=== PATIENT | female | born 1940 | race Caucasian/White ===

== ENCOUNTER → 2024-06-30 | Outpatient (CLI) | payer MEDICARE, SELFPAY ==
[2024-06-30 17:14] LABS: Absolute Lymphocyte Count 1.16 X10^3/uL (0.83-4.51); Absolute Neutrophil Count 3.9 X10^3/uL (2.0-7.7); Basophil# 0.05 X10^3/uL; Basophil% 0.9 % (0-1); Eosinophil# 0.08 X10^3/uL; Eosinophils% 1.4 % (0-5); Hematocrit 25.4 % (37-47); Hemoglobin 7.6 g/dL (12.0-15.0); Lymphocyte # 1.16 X10^3/ul (0.83-4.51); Lymphocyte % 20.3 % (19-41); Mean Corp Hgb Conc 29.9 g/dL (32-36); Mean Corpuscular Hgb 23.7 pg (27.0-32.0); Mean Corpuscular Volume 79.1 fL (81-99); Mean Platelet Vol. 10.6 fl (6.2-12.0); Monocyte# 0.52 X10^3/uL; Monocyte% 9.1 % (0-10); NRBC Flagged by Analyzer 0 % (0-5); Neutrophil # 3.89 X10^3/uL (2.7-7.7); Platelet Count 354 K/mm3 (150-450); RBC Distribution Width CV 17.1 % (11.6-14.6); RBC Distribution Width SD 49.4 fl (35.1-43.9); Red Blood Count 3.21 M/mm3 (4.2-5.4); White Blood Count 5.7 K/mm3 (4.4-11.0)
[2024-06-30 17:23] LABS: Vitamin D,25 Hydroxy 30.2 ng/mL
[2024-06-30 17:29] LABS: AST(SGOT) 20 U/L (15-37); Alanine Aminotransfer ALT/SGPT 19 U/L (13-56); Albumin, Serum 3.3 g/dL (3.2-5.0); Alkaline Phosphatase 94 U/L (45-117); Anion Gap 5 (5-15); BUN 25 mg/dL (7-18); BUN/Creat Ratio 31.3 RATIO (10-20); Calcium,Total 8.7 mg/dL (8.5-10.1); Chloride 110 mmol/L (98-107); EST Glomerular Filtration Rate 73 mL/min (>60); Est Glom Filt Rate - Afr Amer 88 mL/min (>60); Globulin 3.2 g/dL (2.2-4.2); Glucose 112 mg/dL (74-106); Potassium 4.1 mmol/L (3.5-5.1); Protein, Total 6.5 g/dL (6.4-8.2); Sodium Level 139 mmol/L (136-145)
[2024-07-01 14:13] LABS: Iron 11 ug/dL (50-170); Iron Binding Capacity,Total 458 ug/dL (250-450); PERCENT IRON SATURATION 2.4 % (15.0-55.0)
[2024-07-01 14:21] LABS: Hemoglobin A1c 5.3 % (3.8-5.6)
== END | disposition home or self-care (01) ==
PROVIDERS: Visit Provider Nurse Practitioner Family
DX: D64.9 Anemia, unspecified (principal); F03.90 Unspecified dementia, unspecified severity, without behavioral disturbance, psychotic disturbance, mood disturbance, and anxiety; R73.9 Hyperglycemia, unspecified; E55.9 Vitamin D deficiency, unspecified
CPT/HCPCS: 36415; 80053; 82306; 83036; 83540; 83550; 84443; 85025

== ENCOUNTER → 2024-07-02 | Outpatient (CLI) | payer MEDICARE, SELFPAY | END | disposition home or self-care (01) | PROVIDERS: Visit Provider Nurse Practitioner Family | DX: D64.9 Anemia, unspecified (principal); R73.9 Hyperglycemia, unspecified | CPT/HCPCS: 82274 ==

== ENCOUNTER 2024-07-03 15:15 | Inpatient (IN) | payer MEDICARE, SELFPAY ==
[2024-07-03] VITALS (10 sets, daily range): BP systolic 111–127; BP diastolic 69–87; PULSE 69–97; RESP 16–18; TEMP 36.1–37; O2SAT 96–99; BMI 25.3; BMI 25.0
--- NOTE | 2024-07-03 15:43 | EX.ED.DYSGE1 ---
HPI History of Present Illness Chief Complaint: GI Bleed Narrative Narrative: Patient is a 83-year-old female with past medical history of dementia and reported polyps removed several years ago per family out in [place] has not had recent scopes since then who presents to the emergency department with a chief complaint of low hemoglobin. According to the patient daughter at bedside she notes that her mother had been feeling more tired than normal prompting them to follow-up with her primary care physician outpatient setting. They state that she had blood work obtained and a stool sample that was positive they note that her hemoglobin was 7.6. They state that she is on no medications and has not been taking any NSAIDs recently. Family ember at bedside notes that her mother is at baseline and there is no changes neurologically. [facility] Medical History Dementia Allergy/AdvReac Type Severity Reaction Status Date / Time No Known Allergies Allergy Verified 07/03/24 15:20 Social History Smoking Status: Former smoker ROS ROS ED ROS Narrative Constitutional: Denies any fevers, chills, lightheadedness, dizziness, headaches even though this is in the triage note she denies this for me Eyes: Denies any change in vision double vision blurry vision Cardiovascular: Denies chest pain or palpitations Respiratory: Denies coughing wheezing shortness of breath Abdomen: Denies abdominal pain nausea vomit diarrhea. States that she has had dark stools starting recently : Denies any urinary symptoms Neurological: Denies numbness, weakness, tingling Musculoskeletal: Denies back pain Skin: Denies rashes or lesions EXAM Physical Exam Narrative Exam Narrative: General: Patient was lying in bed rest comfortably did not appear to be acute distress Head: Atraumatic, normocephalic Eyes: PERRL bilaterally, EOMI bilaterally, no conjunctival injection noted Neck: Soft, supple, trachea midline Cardiovascular: Regular rate and rhythm no murmurs gallops rubs noted Respiratory: Clear to auscultation bilaterally no rales rhonchi wheeze noted Abdomen: Soft, nondistended, nontender to palpation, bowel sounds present x 4 Extremities: +5/5 strength noted in the bilateral upper and lower extremities, no pedal edema on exam, radial pulses +2/4 in the bilateral per extremities Neurological: Patient following commands and is at her baseline according to her daughter at bedside Skin: Warm, dry, intact no rashes or lesions noted Const Vital Signs: 07/03/24 15:17 07/03/24 17:17 07/03/24 17:53 Temperature 98.2 F 98.4 F Temperature Source Oral Oral Pulse Rate 97 79 79 Respiratory Rate 16 18 18 Blood Pressure 112/74 117/69 111/76 Blood Pressure Mean 86 85 87 Blood Pressure Source Monitor Blood Pressure Position Semi-Fowlers Blood Pressure Location Left Arm Pulse Ox 98 96 96 Oxygen Delivery Method Room Air Room Air Room Air 07/03/24 18:08 Temperature 97.7 F L Temperature Source Oral Pulse Rate 80 Respiratory Rate 18 Blood Pressure 118/73 Blood Pressure Mean 88 Blood Pressure Source Monitor Blood Pressure Position Semi-Fowlers Blood Pressure Location Left Arm Pulse Ox 98 Oxygen Delivery Method Room Air MDM MDM MDM Narrative Medical decision making narrative: Patient is a 83-year-old female who presented to the emerged part with chief complaint of low hemoglobin and dark tarry stools with a positive stool sample. Patient will have a workup performed here on the differential diagnose includes but not limited to upper GI bleed, chronic anemia. Once workup is obtained and reviewed she will be reevaluated. Patient's CBC was largely unremarkable patient CBC reviewed and showed no evidence of leukocytosis white blood count normal 5.6, hemoglobin was notably low at 7 compared to previous blood draw on was 7.6 and this was low compared to her previous blood test according to outpatient physician, MCV was noted be 78.2, platelet count normal at 336. Patient sodium normal 137, potassium normal 4.1, kidney function was normal with a creatinine of 0.98. Patient's AST and ALT were 2124 respectively, lipase was normal at 38. Patient's urinalysis did not reveal any evidence of infection. Patient was Hemoccult positive yesterday. Did call and discussed case with Dr. Cardoza who states that he is able to scope if she would to deteriorate as there is no on-call gastroenterology currently. Outside facilities are not accepting transfers as they are completely full as well. After further discussion with the patient's family members they do feel that would be best for her to be admitted to the hospital for observation. Patient case discussed with hospitalist Dr. Dominique who accept patient for observation. Patient was typed and screened given 1 unit of blood for her symptomatic anemia. Patient was given 40 mg of IV Protonix as well. Patient and family members were updated with all question concerns answered bedside they are agreeable with this plan. Lab Data Labs: Laboratory Results - last 24 hr 07/03/24 07/03/24 07/03/24 16:05 16:15 16:38 WBC 5.6 RBC 3.08 L Hgb 7.0 L Hct 24.1 L MCV 78.2 L MCH 22.7 L MCHC 29.0 L RDW Std Deviation 49.0 H RDW Coeff of David 17.2 H Plt Count 336 MPV 10.0 Immature Gran % (Auto) 0.500 Neut % (Auto) 62.9 Lymph % (Auto) 24.4 Brown % (Auto) 9.3 Eos % (Auto) 1.8 Baso % (Auto) 1.1 H Absolute Neuts (auto) 3.5 Absolute Lymphs (auto) 1.36 Nucleated RBC % 0 Sodium 137 Potassium 4.1 Chloride 106 Carbon Dioxide 25.0 Anion Gap 6 BUN 21 H Creatinine 0.98 Estim Creat Clear Calc 40.22 Est GFR (MDRD) Af Amer 70 Est GFR (MDRD) Non-Af 57 L BUN/Creatinine Ratio 21.5 H Glucose 109 H Calcium 8.5 Total Bilirubin 0.30 AST 21 ALT 24 Alkaline Phosphatase 95 Troponin I High Sens 5 Total Protein 6.4 Albumin 3.1 L Globulin 3.3 Albumin/Globulin Ratio 0.9 Lipase 38 Urine Color Yellow Urine Clarity Clear Urine pH 6.0 Ur Specific [place] 1.010 Urine Protein Negative Urine Glucose (UA) Normal Urine Ketones Negative Urine Occult Blood Negative Urine Nitrite Negative Urine Bilirubin Negative Urine Urobilinogen Normal Ur Leukocyte Esterase 25 H Urine RBC 0 SEEN Urine WBC 0-5 SEEN Ur Squamous Epith Cells 0 SEEN Urine Bacteria 0 SEEN Urine Mucus 0 SEEN Blood Type O NEGATIVE Antibody Screen NEGATIVE Crossmatch See Detail Discharge Plan Triage Chief Complaint: GI Bleed ED Provider: Dangelo Suazo Dx/Rx/DC Orders Clinical Impression: Upper GI bleed, Anemia Primary Care Provider: Rachna Swenson Referrals: Rachna Swenson, [employer]ICE-[employer] [Primary Care Provider] - Print Language: Chinese
[2024-07-03 16:17] LABS: Absolute Lymphocyte Count 1.36 X10^3/uL (0.83-4.51); Absolute Neutrophil Count 3.5 X10^3/uL (2.0-7.7); Basophil# 0.06 X10^3/uL; Basophil% 1.1 % (0-1); Eosinophils% 1.8 % (0-5); Hematocrit 24.1 % (37-47); Lymphocyte # 1.36 X10^3/ul (0.83-4.51); Lymphocyte % 24.4 % (19-41); Mean Corpuscular Hgb 22.7 pg (27.0-32.0); Mean Corpuscular Volume 78.2 fL (81-99); Monocyte# 0.52 X10^3/uL; Monocyte% 9.3 % (0-10); NRBC Flagged by Analyzer 0 % (0-5); Neutrophil % 62.9 % (47-70); Platelet Count 336 K/mm3 (150-450); RBC Distribution Width CV 17.2 % (11.6-14.6); Red Blood Count 3.08 M/mm3 (4.2-5.4); White Blood Count 5.6 K/mm3 (4.4-11.0)
[2024-07-03 16:20] LABS: Bacteria 0 SEEN /hpf (None Seen); Mucous, Urine 0 SEEN /hpf (<or=2+); Red Blood Cells-Urine 0 SEEN /hpf (0-5); Squamous Epithelial Cells - UA 0 SEEN /hpf (5-10)
[2024-07-03 16:28] LABS: Color, Urine Yellow (Yellow); Glucose, Dipstick Normal (Normal); Ketone-Dipstick Negative (Negative); Leukocyte Esterase-Dipstick 25 /ul (Negative); Nitrite-Dipstick Negative (Negative); Occult Blood-Urine Negative /ul (Negative); Protein-Dipstick Negative (Negative); Urine Bilirubin Dipstick Negative (Negative); Urine Clarity Clear (Clear); Urine Urobilinogen Normal (Normal)
[2024-07-03 16:33] LABS: ALB/GLOB Ratio 0.9 RATIO (0.9-2.4); AST(SGOT) 21 U/L (15-37); Alanine Aminotransfer ALT/SGPT 24 U/L (13-56); Albumin, Serum 3.1 g/dL (3.2-5.0); Alkaline Phosphatase 95 U/L (45-117); Anion Gap 6 (5-15); BUN 21 mg/dL (7-18); BUN/Creat Ratio 21.5 RATIO (10-20); Calcium,Total 8.5 mg/dL (8.5-10.1); Chloride 106 mmol/L (98-107); Creatinine, Serum 0.98 mg/dL (0.55-1.02); EST Glomerular Filtration Rate 57 mL/min (>60); Est Glom Filt Rate - Afr Amer 70 mL/min (>60); Estimated Creatinine Clearance 40.22 ml/min; Globulin 3.3 g/dL (2.2-4.2); Glucose 109 mg/dL (74-106); Lipase 38 U/L (13-75); Potassium 4.1 mmol/L (3.5-5.1); Protein, Total 6.4 g/dL (6.4-8.2); Sodium Level 137 mmol/L (136-145); Troponin-I HS 5 pg/mL (3.0-54.0)
[2024-07-03 16:38] LABS: White Blood Cells 0-5 SEEN /hpf (0-5)
[2024-07-03] MEDS: Pantoprazole Sodium 40 MG in 0.9% Normal Saline (100mL MB+) 100 ML 330 MG IV ×2 (16:56→21:30)
--- NOTE | 2024-07-03 18:21 | ED.RN ---
Paged Rhea per Dr Ledezma request for Dr Suazo
--- NOTE | 2024-07-03 19:42 | PCM.HP.STD ---
HPI - General General Date of Admission: 07/03/24 Date of Service: 07/03/24 Chief Complaint: Stool for occult blood positive. Severe anemia. HPI Narrative JAMIE ROLLE, is a 83 F with history of dementia improved on memory unit for last 3 years was sent to ED by PCP. Prior to that patient has noticed very tired and saw PCP who found severe anemia her hemoglobin 7.6. Stool for occult blood was done which came out positive. Patient was sent to ED for further evaluation. Patient is not taking NSAID, antiplatelet agent or anticoagulant agent. No fever or chills. As per the daughter, she did not notice any dyspnea on exertion when she walks 4-5 labs daily. No dizziness or vertigo. Past medical history: About 30 years ago she had a small fall volvulus and a small segment of small bowel was resected. 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 This history was given by patient's daughter. [facility] Medical History Dementia Home Medications ?Medication ?Instructions ?Recorded ?Last Taken ?Type NK 07/03/24 Unknown History Allergy/AdvReac Type Severity Reaction Status Date / Time No Known Allergies Allergy Verified 07/03/24 15:20 Social History Smoking Status: Former smoker ROS ROS Narrative ROS mainly obtained by patient's daughter. Patient herself complain of increased frequency and urgency though she does not have burning micturition/dysuria. Denies dyspnea on exertion. No abdominal pain, nausea vomiting, hematemesis, hematochezia or melena No chest pain pressure or tightness. Rest 14 system ROS unobtainable as patient has severe dementia. She lives in [facility] Review of Systems ROS Unobtainable: due to mental condition Vital Signs Vital Signs Vital Signs: 07/03/24 15:17 07/03/24 17:17 07/03/24 17:53 Temperature 98.2 F 98.4 F Temperature Source Oral Oral Pulse Rate 97 79 79 Respiratory Rate 16 18 18 Blood Pressure 112/74 117/69 111/76 Blood Pressure Mean 86 85 87 Blood Pressure Source Monitor Blood Pressure Position Semi-Fowlers Blood Pressure Location Left Arm Pulse Ox 98 96 96 Oxygen Delivery Method Room Air Room Air Room Air 07/03/24 18:08 07/03/24 18:49 07/03/24 19:00 Temperature 97.7 F L 98 F Temperature Source Oral Pulse Rate 80 82 69 Respiratory Rate 18 18 18 Blood Pressure 118/73 122/77 H 122/79 H Blood Pressure Mean 88 92 93 Blood Pressure Source Monitor Blood Pressure Position Semi-Fowlers Blood Pressure Location Left Arm Pulse Ox 98 98 97 Oxygen Delivery Method Room Air Room Air 07/03/24 19:08 Temperature 97.1 F L Temperature Source Temporal Pulse Rate 93 Respiratory Rate 18 Blood Pressure 122/79 H Blood Pressure Mean 93 Blood Pressure Source Monitor Blood Pressure Position Semi-Fowlers Blood Pressure Location Left Arm Pulse Ox 96 Oxygen Delivery Method Room Air Weight Weight: 147 lb 11.2 oz Body Mass Index (BMI) 25.3 Physical Exam Narrative General: Alert, awake, oriented x3, Cooperative HEENT: Bilateral profound hearing loss, uses hearing avoid. Atraumatic, PERRLA, EOMI, Normocephalic Oral: Oral mucosa dry. No Gingival or Mucosal Lesions/ Ulcerations Neck: Supple, No JVD, Negative Carotid Bruits Chest wall/Lungs: Air entry diminished in bilateral lung bases. No crepitation/rhonchi Cardiovascular: Regular rate, Regular Rhythm, Normal S1, Normal S2, systolic murmur right second ICS Abdomen: Bowel Sounds Present, Soft, Non Tender, Non-Distended : No dysuria. No renal angle tenderness. No suprapubic tenderness. Extremities: No edema, Capillary Refill Less than 3 Seconds Skin: No rashes, No breakdown Musculoskeletal: No Tenderness to Palpation of Joints or Extremities. 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 Neurological: Cranial nerves II-XII grossly intact, DTR 2+/4. No acute focal neurological deficit. Psych/Mental Status: Flat affect, dementia. Results Lab / Micro Data 07/03/24 16:05 07/03/24 16:05 Labs: Laboratory Results - last 24 hr 07/03/24 16:05: WBC 5.6, RBC 3.08 L, Hgb 7.0 L, Hct 24.1 L, MCV 78.2 L, MCH 22.7 L, MCHC 29.0 L, RDW Std Deviation 49.0 H, RDW Coeff of David 17.2 H, Plt Count 336, MPV 10.0, Immature Gran % (Auto) 0.500, Neut % (Auto) 62.9, Lymph % (Auto) 24.4, [place] % (Auto) 9.3, Eos % (Auto) 1.8, Baso % (Auto) 1.1 H, Absolute Neuts (auto) 3.5, Absolute Lymphs (auto) 1.36, Nucleated RBC % 0, Sodium 137, Potassium 4.1, Chloride 106, Carbon Dioxide 25.0, Anion Gap 6, BUN 21 H, Creatinine 0.98, Estim Creat Clear Calc 40.22, Est GFR (MDRD) Af Amer 70, Est GFR (MDRD) Non-Af 57 L, BUN/Creatinine Ratio 21.5 H, Glucose 109 H, Calcium 8.5, Total Bilirubin 0.30, AST 21, ALT 24, Alkaline Phosphatase 95, Troponin I High Sens 5, Total Protein 6.4, Albumin 3.1 L, Globulin 3.3, Albumin/Globulin Ratio 0.9, Lipase 38 07/03/24 16:15: Urine Color Yellow, Urine Clarity Clear, Urine pH 6.0, Ur Specific [place] 1.010, Urine Protein Negative, Urine Glucose (UA) Normal, Urine Ketones Negative, Urine Occult Blood Negative, Urine Nitrite Negative, Urine Bilirubin Negative, Urine Urobilinogen Normal, Ur Leukocyte Esterase 25 H, Urine RBC 0 SEEN, Urine WBC 0-5 SEEN, Ur Squamous Epith Cells 0 SEEN, Urine Bacteria 0 SEEN, Urine Mucus 0 SEEN 07/03/24 16:38: Blood Type O NEGATIVE, Antibody Screen NEGATIVE, Crossmatch See Detail Assessment & Plan Assessment/Plan (1) Upper GI bleed: (2) Acute blood loss anemia: PLAN: Plan This is a 83-year-old female being admitted for evaluation of severe anemia and stool for occult blood positive. 1. Acute anemia most likely from GI blood loss: Patient is being admitted to PCU. H&H done as an outpatient was 7.6/25%. It further dropped to 7.0/24%. Patient is getting first unit of PRBC in ED. IV pantoprazole 40 mg every 12 hourly. Patient does not have a history of cirrhosis or chronic liver disease therefore low suspicion of variceal bleeding. GI DrPaulino Méndez is consulted for EGD tomorrow AM. Clear liquids in the evening and then n.p.o. from midnight. Twelve-lead EKG individually reviewed. NSR, low voltage QRS at 84/min. QTc 423 ms. Heart rate and blood pressure are in normal range. 2. 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 No acute issues. 3. Acute lower urinary tract symptoms: Patient complaining of increased frequency and urgency though she denies dysuria. UA shows LE 25, nitrite negative, WBC 0-5 cells, RBC 0, bacteria 0 therefore low suspicion of UTI. Urine culture is ordered. Patient does not have fever. 4. Advanced dementia: Patient in memory unit [facility] DVT prophylaxis, high risk: Pharmacological prophylaxis contraindicated in view of severe anemia. Bilateral SCDs Living will/advanced directive/end of life care: Patient does have living will or advanced directive. Her daughter is power of sports attorney for health after discussion of benefits/risks procedures involved with full code, DNR CC arrest and DNR CC, the patient and her daughter opted for full code. Patient does want artificial life support including intubation, tube feed, ventilator and/chest compression, central venous catheter, vasopressor and DC shock if needed Total time spent in [id number] encounter in discussion of advanced directive 17 minutes. Laboratory Results 07/03/24 16:05: WBC 5.6, RBC 3.08 L, Hgb 7.0 L, Hct 24.1 L, MCV 78.2 L, MCH 22.7 L, MCHC 29.0 L, RDW Std Deviation 49.0 H, RDW Coeff of David 17.2 H, Plt Count 336, MPV 10.0, Immature Gran % (Auto) 0.500, Neut % (Auto) 62.9, Lymph % (Auto) 24.4, [place] % (Auto) 9.3, Eos % (Auto) 1.8, Baso % (Auto) 1.1 H, Absolute Neuts (auto) 3.5, Absolute Lymphs (auto) 1.36, Nucleated RBC % 0, Sodium 137, Potassium 4.1, Chloride 106, Carbon Dioxide 25.0, Anion Gap 6, BUN 21 H, Creatinine 0.98, Estim Creat Clear Calc 40.22, Est GFR (MDRD) Af Amer 70, Est GFR (MDRD) Non-Af 57 L, BUN/Creatinine Ratio 21.5 H, Glucose 109 H, Calcium 8.5, Total Bilirubin 0.30, AST 21, ALT 24, Alkaline Phosphatase 95, Troponin I High Sens 5, Total Protein 6.4, Albumin 3.1 L, Globulin 3.3, Albumin/Globulin Ratio 0.9, Lipase 38 07/03/24 16:15: Urine Color Yellow, Urine Clarity Clear, Urine pH 6.0, Ur Specific [place] 1.010, Urine Protein Negative, Urine Glucose (UA) Normal, Urine Ketones Negative, Urine Occult Blood Negative, Urine Nitrite Negative, Urine Bilirubin Negative, Urine Urobilinogen Normal, Ur Leukocyte Esterase 25 H, Urine RBC 0 SEEN, Urine WBC 0-5 SEEN, Ur Squamous Epith Cells 0 SEEN, Urine Bacteria 0 SEEN, Urine Mucus 0 SEEN 07/03/24 16:38: Blood Type O NEGATIVE, Antibody Screen NEGATIVE, Crossmatch See Detail Charges/Coding Visit Charges Inpatient E&M: 73510 Init Hosp L3 Procedures Hospitalists Procedures: 81549 Advncd Care Plan 30 Min
[2024-07-03] MEDS: 0.9% Saline Lock 10 ML Syringe IV (21:28)
[2024-07-03] MEDS: 0.9% Normal Saline (1000mL) 1,000 ML 75 ML IV (21:28)
[2024-07-03 21:45] LABS: Prothrombin Time (Protime)PT. 13.4 SECONDS (11.7-14.9)
[2024-07-04] VITALS (11 sets, daily range): BP systolic 99–124; BP diastolic 64–82; PULSE 63–81; RESP 16–18; TEMP 36.4–36.9; O2SAT 95–99
[2024-07-04 01:31] LABS: Hematocrit 26.1 % (37-47); Hemoglobin 7.8 g/dL (12.0-15.0)
[2024-07-04 07:01] LABS: Absolute Lymphocyte Count 1.05 X10^3/uL (0.83-4.51); Basophil# 0.06 X10^3/uL; Basophil% 1.2 % (0-1); Eosinophil# 0.15 X10^3/uL; Eosinophils% 3.1 % (0-5); Hematocrit 27.2 % (37-47); Hemoglobin 8.2 g/dL (12.0-15.0); Lymphocyte # 1.05 X10^3/ul (0.83-4.51); Lymphocyte % 21.8 % (19-41); Mean Corp Hgb Conc 30.1 g/dL (32-36); Mean Corpuscular Hgb 23.8 pg (27.0-32.0); Mean Corpuscular Volume 79.1 fL (81-99); Mean Platelet Vol. 10.6 fl (6.2-12.0); Monocyte# 0.51 X10^3/uL; Monocyte% 10.6 % (0-10); NRBC Flagged by Analyzer 0 % (0-5); Neutrophil # 3.01 X10^3/uL (2.7-7.7); Neutrophil % 62.7 % (47-70); Platelet Count 312 K/mm3 (150-450); RBC Distribution Width CV 16.8 % (11.6-14.6); RBC Distribution Width SD 48.2 fl (35.1-43.9); Red Blood Count 3.44 M/mm3 (4.2-5.4); White Blood Count 4.8 K/mm3 (4.4-11.0)
--- NOTE | 2024-07-04 07:35 | PN.HOSP_ITS ---
Reason for Visit Reason for Visit: Diagnoses Acute posthemorrhagic anemia (07/03/24) Gastrointestinal hemorrhage, unspecified (07/03/24) Subjective Subjective Patient is an 83-year-old lady admitted with symptomatic anemia with guaiac positive stools Objective Data Objective Data Vital Signs: Vital Signs Temp Pulse Resp BP Pulse Ox O2 Del Method 98.1 F 77 16 99/64 97 Room Air 07/04/24 04:04 07/04/24 04:04 07/04/24 04:04 07/04/24 04:04 07/04/24 04:04 07/04/24 04:04 Oxygen Delivery Method Room Air Weight: 66 kg Body Mass Index (BMI) 25.0 Intake & Output: Intake and Output for Last 24 Hours 07/02/24 07/03/24 07/04/24 23:59 23:59 23:59 Intake Total 220 / 460 240 / 240 Output Total 300 / 300 Balance 220 / 160 -60 / -60 Lab / Micro Data 07/04/24 05:30 07/04/24 05:30 Labs: Laboratory Results - last 24 hr 07/03/24 16:05: WBC 5.6, RBC 3.08 L, Hgb 7.0 L, Hct 24.1 L, MCV 78.2 L, MCH 22.7 L, MCHC 29.0 L, RDW Std Deviation 49.0 H, RDW Coeff of David 17.2 H, Plt Count 336, MPV 10.0, Immature Gran % (Auto) 0.500, Neut % (Auto) 62.9, Lymph % (Auto) 24.4, [place] % (Auto) 9.3, Eos % (Auto) 1.8, Baso % (Auto) 1.1 H, Absolute Neuts (auto) 3.5, Absolute Lymphs (auto) 1.36, Nucleated RBC % 0, Sodium 137, Potassium 4.1, Chloride 106, Carbon Dioxide 25.0, Anion Gap 6, BUN 21 H, Creatinine 0.98, Estim Creat Clear Calc 40.22, Est GFR (MDRD) Af Amer 70, Est GFR (MDRD) Non-Af 57 L, BUN/Creatinine Ratio 21.5 H, Glucose 109 H, Calcium 8.5, Total Bilirubin 0.30, AST 21, ALT 24, Alkaline Phosphatase 95, Troponin I High Sens 5, Total Protein 6.4, Albumin 3.1 L, Globulin 3.3, Albumin/Globulin Ratio 0.9, Lipase 38 07/03/24 16:15: Urine Color Yellow, Urine Clarity Clear, Urine pH 6.0, Ur Specific [place] 1.010, Urine Protein Negative, Urine Glucose (UA) Normal, Urine Ketones Negative, Urine Occult Blood Negative, Urine Nitrite Negative, Urine Bilirubin Negative, Urine Urobilinogen Normal, Ur Leukocyte Esterase 25 H, Urine RBC 0 SEEN, Urine WBC 0-5 SEEN, Ur Squamous Epith Cells 0 SEEN, Urine Bacteria 0 SEEN, Urine Mucus 0 SEEN 07/03/24 16:38: Blood Type O NEGATIVE, Antibody Screen NEGATIVE, Crossmatch See Detail 07/03/24 20:59: PT 13.4, INR 1.0 07/04/24 01:22: Hgb 7.8 L, Hct 26.1 L 07/04/24 05:30: WBC 4.8, RBC 3.44 L, Hgb 8.2 L, Hct 27.2 L, MCV 79.1 L, MCH 23.8 L, MCHC 30.1 L, RDW Std Deviation 48.2 H, RDW Coeff of David 16.8 H, Plt Count 312, MPV 10.6, Immature Gran % (Auto) 0.600, Neut % (Auto) 62.7, Lymph % (Auto) 21.8, [place] % (Auto) 10.6 H, Eos % (Auto) 3.1, Baso % (Auto) 1.2 H, Absolute Neuts (auto) 3.0, Absolute Lymphs (auto) 1.05, Nucleated RBC % 0 Physical Exam Narrative GENERAL: cooperative HEENT: Atraumatic; normocephalic EYES; Anicteric, Normal Conjunctiva NECK; supple, normal thyroid, RESPIRATORY: Diminished to auscultation CARDIOVASCULAR: Regular S1 S2, GI: soft, normoactive bowel sounds, : No Renal angle tenderness; EXTREMITIES: No edema, no clubbing, MUSCULOSKELETAL: no muscle wasting NEURO: Awake; no lateralizing signs. SKIN: No Rash PSYCH; Flat affect Assessment & Plan Assessment/Plan (1) Upper GI bleed: (2) Acute blood loss anemia: PLAN: Plan Patient is an 83-year-old lady admitted with symptomatic anemia with guaiac positive stools 1. Acute symptomatic anemia ? Patient did have guaiac positive stools. Patient was transfused with 1 unit PRBC for the emergency department started on Protonix admitted to regular nursing floor with consultation placed to GI for endoscopic evaluation. Subsequent monitoring with daily H&H ordered 2. 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 Previous history of small bowel volvulus 4. Advanced dementia ? Supportive 5. DVT prophylaxis ? Chemoprophylaxis contraindicated in view of patient presentation Time spent in the patient's overall evaluation,decision-making process, review of diagnostic data, adjustment of management, discussion with other providers, nursing nursing and ancillary staff involved in patient's care documentation, 40 Minutes Charges/Coding Visit Charges Inpatient E&M: 05260 Subs Hosp L2
[2024-07-04 08:14] LABS: Anion Gap 6 (5-15); BUN 15 mg/dL (7-18); BUN/Creat Ratio 20.2 RATIO (10-20); Calcium,Total 8.5 mg/dL (8.5-10.1); Chloride 114 mmol/L (98-107); Creatinine, Serum 0.74 mg/dL (0.55-1.02); EST Glomerular Filtration Rate 79 mL/min (>60); Est Glom Filt Rate - Afr Amer 96 mL/min (>60); Estimated Creatinine Clearance 48.94 ml/min; Glucose 92 mg/dL (74-106); Potassium 3.9 mmol/L (3.5-5.1); Sodium Level 144 mmol/L (136-145)
[2024-07-04] MEDS: Pantoprazole Sodium 40 MG in 0.9% Normal Saline (100mL MB+) 100 ML 330 MG IV ×2 (10:06→21:08)
--- NOTE | 2024-07-04 13:03 | CASEMGMT ---
Social Work Pt confirms her daughter Jenna is POA for healthcare. SW asked her to have daughter bring in the paperwork as able. Pt states her daughter will be here later, will have daughter ask to speak w/SW. SW will speak w/daughter later today should she request to speak w/SW. MARILYN De Oliveira
--- NOTE | 2024-07-04 14:26 | CASEMGMT ---
Social Work- SW confirmed with pt preference to return to [place]. Rosalia advised. FRANCISCO Clark
--- NOTE | 2024-07-04 15:20 | EGD_PTH ---
PATIENT: JAMIE ROLLE LOC: [facility] U#:[id number] AGE/SX: 83/F ROOM: [facility] RE07/05/[address]: Dr. Nicholas Maki MD : [id number] BED: 1 DIS: 07/08/2024 SPEC #: [id number] RECD: 07/06/24 07:14 STATUS: ALEXANDRO JACOBS #: [id number] JESSICA: 07/04/24 15:[address]: Jose Méndez DEPT: SURGICAL PATHOLOGY RECD BY: Don Collier ENTERED: 07/06/24 09:25 SP TYPE: EGD BIOPSY OTHR DR: MD Dr. Nicholas Walter MD Dr. Prakash Chand, MD Jessica Franklin, [facility], [employer]-C Tissues: Duodenum, NOS Procedures: Surgery Specimen Level IV HEADER OPERATION: EGD with biopsy PRE-OP DIAGNOSIS: Upper GI bleed, acute blood loss anemia TISSUE SUBMITTED: Duodenum biopsy MICROSCOPIC DIAGNOSIS Duodenum, biopsy: Fragments of duodenal mucosa with minimal acute and chronic inflammation and Jie's gland hyperplasia. 07/07/2024 MICROSCOPIC DESCRIPTION Slides are reviewed. GROSS DESCRIPTION Received in fixative is one container labeled with the patient's name and designated Duodenum biopsy. The specimen consists of two irregular fragments of light chow soft tissue that in aggregate measure 0.6 x 0.4 x 0.1 cm. The specimen is totally submitted in one cassette. 07/06/2024 TC:5 CPT:80821
--- NOTE | 2024-07-04 15:54 | CASEMGMT ---
STACEY MORRIS called daughter Gretta to complete MCMANUS Form as patient had dementia. STACEY MORRIS explained MCMANUS Form to daughter, daughter voiced understanding. Telephone consent provided by daughter. Copy of Mcmanus form left in room for daughter. Daughter had no further questions or concerns. Mcmanus filed in chart.
--- NOTE | 2024-07-04 15:56 | PRE.ANES_ITS ---
ASA Classification* ASA Classification ASA Classification: 3 and E Assessment & Plan Anesthesia* Anesthesia Assessment Anesthesia Assessment: Discussed sedation and/or anesthesia options, risks, benefits, and alternatives with patient/parents/legal guardian/POA. Questions invited. The patient/parents/legal guardian/POA seems to understand and agrees to proceed with anesthesia plan. Reviewed the physical assessment, medical history, allergy history and patient home medications list prior to surgery/procedure/anesthetic and documented any changes. Performed airway and anesthesia risk assessments. Anesthesia Type Anesthesia Type: MAC History Source History Obtained from:: Chart and Poor Historian Anesthesia Focused Assessment* Temperature: 98.4 F Pulse Rate: 79 Blood Pressure: 113/68 Respiratory Rate: 18 Pulse Ox: 96 Oxygen Delivery Method: Room Air Airway Assessment Mouth opens: >3 cm Mallampati Score: II Teeth Condition: Intact Neck Range of motion (ROM): Full ROM Focused Labs Anesthesia Preop lab: CBC WBC 4.8 K/mm3 (4.4-11.0) 07/04/24 05:30 RBC 3.44 M/mm3 (4.2-5.4) L 07/04/24 05:30 Hgb 8.2 g/dL (12.0-15.0) L 07/04/24 05:30 Hct 27.2 % (37-47) L 07/04/24 05:30 Plt Count 312 K/mm3 (150-450) 07/04/24 05:30 CHEMISTRY Potassium 3.9 mmol/L (3.5-5.1) 07/04/24 05:30 Sodium 144 mmol/L (136-145) 07/04/24 05:30 BUN 15 mg/dL (7-18) 07/04/24 05:30 Creatinine 0.74 mg/dL (0.55-1.02) 07/04/24 05:30 Glucose 92 mg/dL (74-106) 07/04/24 05:30 TSH 1.880 uIU/mL (0.358-3.740) 06/30/24 14:23 COAG PT 13.4 SECONDS (11.7-14.9) 07/03/24 20:59 Pre-Assessment Diagnosis/Proposed Procedure Planned Operative Procedure(s): EGD Anesthesia History Anesthesia History - social science research assistant: Anesthesia History - social science research assistant Hx Hospitalization Any Problems With Anesthesia Cholinesterase deficiency You/Your Family Experience fever (hyperthermia) with Relationship Recent Exposure to Contagious Disease Does patient have nerve stimulator Patient instructed to have device shut off --Does patient have Pacemaker or ICD? When Was Last Pacemaker Check QUESTION #4 FULL TEXT: You/Your Family Experience fever (hyperthermia) with Anesthesia Any additional information?: No Last Oral Intake Last Oral intake: Last Oral Intake NPO since Meds taken in AM with sips of water? Meds patient instructed to take am of surgery Any additional information?: No PONV PONV - social science research assistant: PONV - social science research assistant Female HX of Motion Sickness HX of N/V After Surgery Non-Smoker Duration of Surgery greater than 60 minutes Number of Risk Factors PONV Score Any additional information?: No Height & Weight Height & Weight: Anesthesia: Height & Weight Height 5 ft 4 in 07/03/24 19:59 Weight: 66 kg 07/03/24 19:59 Body Mass Index (BMI) 25.0 07/03/24 19:59 Respiratory Assessment Respiratory Assessment - social science research assistant: Respiratory Tract Infection Hx - social science research assistant Hx Respiratory Tract Infection Any additional information?: No STOP Sleep Apnea STOP Sleep Apnea - social science research assistant: STOP Sleep Apnea - social science research assistant Hx Hypertension No 07/04/24 13:32 Hx Sleep Apnea No 07/03/24 19:59 CPAP BIPAP Do you snore loudly (louder No 07/03/24 19:59 than talking or can be heard Do you often feel tired/ No 07/03/24 19:59 fatigued/ sleepy during daytime? Has anyone observed you stop No 07/03/24 19:59 breathing during sleep? STOP Results Negative 07/03/24 19:59 QUESTION #5 FULL TEXT : Do you snore loudly (louder than talking or can be heard through closed doors)? Any additional information?: No Tobacco Use History Tobacco Use History - social science research assistant: Tobacco Use History - social science research assistant Tobacco Use Smoking Status Former smoker 07/03/24 19:59 Hx Tobacco Use No 07/03/24 19:59 Years Smoking Packs Smoked per Day Smoking Cessation Date was No - quit smoking greater 07/03/24 19:59 within the last 15 years than 15 years ago Hx Smoking Cessation Date Hx Smoking Cessation Counseling Any additional information?: No Hematologic Medial History Hematologic Hx - social science research assistant: Hematologic Medical Hx - compliance mgr Hx of Blood Transfusion No 07/03/24 19:59 Hx of Transfusion in last 3 No 07/03/24 19:59 Months Date of Last Transfusion (if within last 3 months) Ever experience any problems No 07/03/24 19:59 with transfusion(s)? Specify any problems Hx of Preganancy in last 3 N/A 07/03/24 19:59 Months Nurse Filling Out Transfusion RSMAILES 07/03/24 19:59 & Questions: Date: 07/03/24 07/03/24 19:59 Time: 20:52 07/03/24 19:59 Patient unable to answer at this time (ie. confused, unrespo Any additional information?: No /Reproduction History /Reproductive History - social science research assistant: /Reproductive Hx- social science research assistant Hx Now Gestational Age (in weeks): EDC: Hx Hx Para Hx Section SAB Any additional information?: No Active Medications Active Medications: Current Medications Generic Name Dose Route Start Last Admin Trade Name Freq PRN Reason Stop Dose Admin Acetaminophen 650 mg 07/03/24 20:35 Acetaminophen 325 Mg Tablet PO Q6H PRN PRN Pain 1-10 Or Fever>100.7 Pantoprazole Sodium 40 mg/ 110 mls @ 330 mls/hr 07/03/24 22:00 07/04/24 10:44 Sodium Chloride IV Infused Q12 COURTNEY Infusion Nitroglycerin 0.4 mg 07/03/24 20:35 Nitroglycerin (Inpatient Use) 0.4 Mg Tab.Subl SL Q5M PRN CARDIAC/CHEST PAIN Prochlorperazine Edisylate 5 mg 07/03/24 20:35 Prochlorperazine 10 Mg/2 Ml Vial IV Q4H PRN PRN Breakthrough Nausea/Vomiting Senna/Docusate Sodium 2 tablet 07/03/24 20:35 Senna/Docusate Sodium 1 Tablet PO BID PRN PRN Constipation Sodium Chloride 10 - 40 ml 07/03/24 20:10 07/03/24 21:28 0.9% Saline Lock 10 Ml Syringe IV 10 ml UD PRN Administration SALINE FLUSH PFSH Medical History Dementia Home Medications ?Medication ?Instructions ?Recorded ?Last Taken ?Type NK 07/03/24 Unknown History Allergy/AdvReac Type Severity Reaction Status Date / Time No Known Allergies Allergy Verified 07/03/24 15:20 Social History Smoking Status: Former smoker Review of Systems (Anesthesia) ROS Narrative System reviewed and no additional complaints, except as documented.
--- NOTE | 2024-07-04 16:03 | EX.PCM.CON.G ---
HPI Consult Data Date of Consult: 07/04/24 HPI Narrative Reason for Consultation: Anemia HPI Narrative: JAMIE ROLLE, is a 83 F with history of dementia improved on memory unit for last 3 years was sent to ED by PCP. Prior to that patient has noticed very tired and saw PCP who found severe anemia her hemoglobin 7.6. Stool for occult blood was done which came out positive. Patient was sent to ED for further evaluation. Patient is not taking NSAID, antiplatelet agent or anticoagulant agent. No fever or chills. As per the daughter, she did not notice any dyspnea on exertion when she walks 4-5 labs daily. No dizziness or vertigo. Past medical history: About 30 years ago she had a small fall volvulus and a small segment of small bowel was resected. 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 Her hemoglobin was 6.2 and she got 1 unit of packed red blood cells and went up to 7.2. [facility] Medical History Dementia Home Medications ?Medication ?Instructions ?Recorded ?Last Taken ?Type NK 07/03/24 Unknown History Allergy/AdvReac Type Severity Reaction Status Date / Time No Known Allergies Allergy Verified 07/03/24 15:20 Social History Smoking Status: Former smoker ROS ROS Narrative ROS mainly obtained by patient's daughter. Patient herself complain of increased frequency and urgency though she does not have burning micturition/dysuria. Denies dyspnea on exertion. No abdominal pain, nausea vomiting, hematemesis, hematochezia or melena No chest pain pressure or tightness. Rest 14 system ROS unobtainable as patient has severe dementia. She lives in [facility] Review of Systems ROS Unobtainable: due to mental condition Physical Exam Narrative GENERAL: cooperative HEENT: Atraumatic; normocephalic EYES; Anicteric, Normal Conjunctiva NECK; supple, normal thyroid, RESPIRATORY: Diminished to auscultation CARDIOVASCULAR: Regular S1 S2, GI: soft, normoactive bowel sounds, : No Renal angle tenderness; EXTREMITIES: No edema, no clubbing, MUSCULOSKELETAL: no muscle wasting NEURO: Awake; no lateralizing signs. SKIN: No Rash PSYCH; Flat affect Lab / Micro Data 07/04/24 05:30 07/04/24 05:30 Labs: Laboratory Results - last 24 hr 07/03/24 16:05: WBC 5.6, RBC 3.08 L, Hgb 7.0 L, Hct 24.1 L, MCV 78.2 L, MCH 22.7 L, MCHC 29.0 L, RDW Std Deviation 49.0 H, RDW Coeff of David 17.2 H, Plt Count 336, MPV 10.0, Immature Gran % (Auto) 0.500, Neut % (Auto) 62.9, Lymph % (Auto) 24.4, [place] % (Auto) 9.3, Eos % (Auto) 1.8, Baso % (Auto) 1.1 H, Absolute Neuts (auto) 3.5, Absolute Lymphs (auto) 1.36, Nucleated RBC % 0, Sodium 137, Potassium 4.1, Chloride 106, Carbon Dioxide 25.0, Anion Gap 6, BUN 21 H, Creatinine 0.98, Estim Creat Clear Calc 40.22, Est GFR (MDRD) Af Amer 70, Est GFR (MDRD) Non-Af 57 L, BUN/Creatinine Ratio 21.5 H, Glucose 109 H, Calcium 8.5, Total Bilirubin 0.30, AST 21, ALT 24, Alkaline Phosphatase 95, Troponin I High Sens 5, Total Protein 6.4, Albumin 3.1 L, Globulin 3.3, Albumin/Globulin Ratio 0.9, Lipase 38 07/03/24 16:15: Urine Color Yellow, Urine Clarity Clear, Urine pH 6.0, Ur Specific [place] 1.010, Urine Protein Negative, Urine Glucose (UA) Normal, Urine Ketones Negative, Urine Occult Blood Negative, Urine Nitrite Negative, Urine Bilirubin Negative, Urine Urobilinogen Normal, Ur Leukocyte Esterase 25 H, Urine RBC 0 SEEN, Urine WBC 0-5 SEEN, Ur Squamous Epith Cells 0 SEEN, Urine Bacteria 0 SEEN, Urine Mucus 0 SEEN 07/03/24 16:38: Blood Type O NEGATIVE, Antibody Screen NEGATIVE, Crossmatch See Detail 07/03/24 20:59: PT 13.4, INR 1.0 07/04/24 01:22: Hgb 7.8 L, Hct 26.1 L 07/04/24 05:30: WBC 4.8, RBC 3.44 L, Hgb 8.2 L, Hct 27.2 L, MCV 79.1 L, MCH 23.8 L, MCHC 30.1 L, RDW Std Deviation 48.2 H, RDW Coeff of David 16.8 H, Plt Count 312, MPV 10.6, Immature Gran % (Auto) 0.600, Neut % (Auto) 62.7, Lymph % (Auto) 21.8, [place] % (Auto) 10.6 H, Eos % (Auto) 3.1, Baso % (Auto) 1.2 H, Absolute Neuts (auto) 3.0, Absolute Lymphs (auto) 1.05, Nucleated RBC % 0, Sodium 144, Potassium 3.9, Chloride 114 H, Carbon Dioxide 24.0, Anion Gap 6, BUN 15, Creatinine 0.74, Estim Creat Clear Calc 48.94, Est GFR (MDRD) Af Amer 96, Est GFR (MDRD) Non-Af 79, BUN/Creatinine Ratio 20.2 H, Glucose 92, Calcium 8.5 Assessment & Plan Assessment/Plan (1) Upper GI bleed: (2) Acute blood loss anemia: PLAN: Plan This is a 83-year-old female being admitted for evaluation of severe anemia and stool for occult blood positive. Acute anemia most likely from GI blood loss: Patient is being admitted to PCU. H&H done as an outpatient was 7.6/25%. It further dropped to 7.0/24%. Patient is getting first unit of PRBC in ED. IV pantoprazole 40 mg every 12 hourly. Patient does not have a history of cirrhosis or chronic liver disease therefore low suspicion of variceal bleeding. She will undergo an upper endoscopy for evaluation of her upper GI tract for signs of blood loss anemia. She will undergo colonoscopy if that is negative and possible capsule endoscopy. The patient's daughter was explained alternatives, risk, benefits including not withstanding bleeding, infection, sepsis, perforation, need for charge and . She have an ASA of 3. 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 No acute issues. Charges/Coding Visit Charges Inpatient E&M: 40329 Init Hosp L3
--- NOTE | 2024-07-04 16:27 | OP.CCLET_ITS ---
07/04/2024 Rachna Swesnon [facility], Fishing Tool Supervisor-c Re : Upper GI endoscopy procedure for Nasra Swenson This procedure was performed on Thursday, July 04, 2024. My impressions and recommendations are as follows: Impressions : - Normal esophagus. - No gross lesions in the stomach. - Erythematous duodenopathy. Biopsied. Recommendations : - Return patient to hospital page for ongoing care. - Full liquid diet. - Continue present medications. - Await pathology results. - Consider colonoscopy My findings are described in the full procedure note, which is enclosed. If I can be of further assistance, please feel free to contact me at . Sincerely, Jose Méndez, 07/04/2024 4:25:48 PM This report has been signed electronically.
--- NOTE | 2024-07-04 16:27 | OP.EGD_ITS ---
Patient Name: Nasra Kemp Procedure Date: 07/04/2024 3:18 PM Date of : 1940 Age: 83 Procedure: Upper GI endoscopy Indications: Iron deficiency anemia Providers: Jose Méndez DO Medicines: Monitored Anesthesia Care Patient Profile: This is an 83 year old female. Refer to note in patient chart for documentation of history and physical. Patient has symptoms. Complications: No immediate complications. Procedure: Pre-Anesthesia Assessment: - Prior to the procedure, a History and Physical was performed, and patient medications and allergies were reviewed. The patient is competent. The risks and benefits of the procedure and the sedation options and risks were discussed with the patient. All questions were answered and informed consent was obtained. Patient identification and proposed procedure were verified by the physician in the pre-procedure area. Mental Status Examination: alert and oriented. Airway Examination: normal oropharyngeal airway and neck mobility. Respiratory Examination: clear to auscultation. CV Examination: normal. Prophylactic Antibiotics: The patient does not require prophylactic antibiotics. Prior Anticoagulants: The patient has taken no anticoagulant or antiplatelet agents except for NSAID medication. ASA Grade Assessment: II - A patient with mild systemic disease. After reviewing the risks and benefits, the patient was deemed in satisfactory condition to undergo the procedure. The anesthesia plan was to use monitored anesthesia care (MAC). Immediately prior to administration of medications, the patient was re-assessed for adequacy to receive sedatives. The heart rate, respiratory rate, oxygen saturations, blood pressure, adequacy of pulmonary ventilation, and response to care were monitored throughout the procedure. The physical status of the patient was re-assessed after the procedure. After obtaining informed consent, the endoscope was passed under direct vision. Throughout the procedure, the patient's blood pressure, pulse, and oxygen saturations were monitored continuously. The Endoscope was introduced through the mouth, and advanced to the second part of duodenum. The upper GI endoscopy was accomplished without difficulty. The patient tolerated the procedure well. Scope In: 4:16:53 PM Scope Out: 4:20:28 PM Total Procedure Duration Time 0 hours 3 minutes 35 seconds Findings: The examined esophagus was normal. No gross lesions were noted in the stomach. Patchy mildly erythematous mucosa without active bleeding and with no stigmata of bleeding was found in the duodenal bulb. Biopsies were taken with a cold forceps for histology. Verification of patient identification for the specimen was done. Estimated blood loss was minimal. Impression: - Normal esophagus. - No gross lesions in the stomach. - Erythematous duodenopathy. Biopsied. Recommendation: - Return patient to hospital page for ongoing care. - Full liquid diet. - Continue present medications. - Await pathology results. - Consider colonoscopy Procedure Code(s): --- Professional --- 96220, Esophagogastroduodenoscopy, flexible, transoral; with biopsy, single or multiple CPT copyright 2021 [employer]. All rights reserved. The codes documented in this report are preliminary and upon electrical logger review may be revised to meet current compliance requirements. Jose Méndez DO 07/04/2024 4:25:48 PM This report has been signed electronically. Number of Addenda: 0 Note Initiated On: 07/04/2024 3:18 PM
--- NOTE | 2024-07-04 16:27 | PCM.POST.ANE ---
Anesthesia: Postop Eval I Current Vital Signs Temperature: 98.4 F Pulse Rate: 79 Blood Pressure: 119/75 Respiratory Rate: 18 Pulse Ox: 95 Assessment Airway patent: Yes Spontaneous unlabored respirations: Yes nausea: No Vomiting: No Anesthesia Complication: No Fluid Hydration Crystalloid volume administer (ml): 200 Total IV fluid infused: 200 Progress Note Anesthesia document: Postop Eval 1 completed: Yes
[2024-07-04] MEDS: 0.9% Saline Lock 10 ML Syringe IV (21:08)
[2024-07-04] MEDS: Acetaminophen 325 MG Tablet 650 MG PO (23:24)
[2024-07-05 03:59] VITALS: BP 99/64; PULSE 69; RESP 16; TEMP 36.9; O2SAT 97
[2024-07-05 06:22] LABS: Absolute Lymphocyte Count 1.14 X10^3/uL (0.83-4.51); Absolute Neutrophil Count 2.7 X10^3/uL (2.0-7.7); Basophil# 0.04 X10^3/uL; Basophil% 0.9 % (0-1); Eosinophil# 0.13 X10^3/uL; Eosinophils% 2.9 % (0-5); Hematocrit 27.4 % (37-47); Hemoglobin 8.3 g/dL (12.0-15.0); Lymphocyte # 1.14 X10^3/ul (0.83-4.51); Lymphocyte % 25.7 % (19-41); Mean Corp Hgb Conc 30.3 g/dL (32-36); Mean Corpuscular Hgb 23.8 pg (27.0-32.0); Mean Corpuscular Volume 78.5 fL (81-99); Mean Platelet Vol. 10.4 fl (6.2-12.0); Monocyte# 0.43 X10^3/uL; Monocyte% 9.7 % (0-10); NRBC Flagged by Analyzer 0 % (0-5); Neutrophil # 2.66 X10^3/uL (2.7-7.7); Neutrophil % 60.1 % (47-70); Platelet Count 308 K/mm3 (150-450); RBC Distribution Width CV 17.3 % (11.6-14.6); RBC Distribution Width SD 49.2 fl (35.1-43.9); Red Blood Count 3.49 M/mm3 (4.2-5.4); White Blood Count 4.4 K/mm3 (4.4-11.0)
[2024-07-05 06:59] LABS: Anion Gap 5 (5-15); BUN 12 mg/dL (7-18); BUN/Creat Ratio 18.2 RATIO (10-20); Calcium,Total 8.8 mg/dL (8.5-10.1); Chloride 112 mmol/L (98-107); Creatinine, Serum 0.66 mg/dL (0.55-1.02); EST Glomerular Filtration Rate 91 mL/min (>60); Est Glom Filt Rate - Afr Amer 110 mL/min (>60); Estimated Creatinine Clearance 48.94 ml/min; Glucose 90 mg/dL (74-106); Magnesium 2.2 mg/dL (1.6-2.6); Phosphorus 3.5 mg/dL (2.5-4.9); Potassium 3.8 mmol/L (3.5-5.1); Sodium Level 142 mmol/L (136-145)
--- NOTE | 2024-07-05 07:30 | PN.HOSP_ITS ---
Reason for Visit Reason for Visit: Diagnoses Acute posthemorrhagic anemia (07/03/24) Gastrointestinal hemorrhage, unspecified (07/03/24) Subjective Subjective patient underwent EGD the day prior was found to have erythematous duodenopathy. Plan is for patient to complete workup with colonoscopy on 07/06/[address] Médnez Objective Data Objective Data Vital Signs: Vital Signs Temp Pulse Resp BP Pulse Ox O2 Del Method 98.5 F 69 16 99/64 97 Room Air 07/05/24 03:59 07/05/24 03:59 07/05/24 03:59 07/05/24 03:59 07/05/24 03:59 07/05/24 03:59 Oxygen Delivery Method Room Air Weight: 66 kg Body Mass Index (BMI) 25.0 Intake & Output: Intake and Output for Last 24 Hours 07/03/24 07/04/24 07/05/24 23:59 23:59 23:59 Intake Total 220 / 460 1580 / 1580 Output Total 400 / 400 Balance 220 / 160 1180 / 1180 Lab / Micro Data 07/05/24 05:48 07/05/24 05:48 Labs: Laboratory Results - last 24 hr 07/04/24 05:30: Sodium 144, Potassium 3.9, Chloride 114 H, Carbon Dioxide 24.0, Anion Gap 6, BUN 15, Creatinine 0.74, Estim Creat Clear Calc 48.94, Est GFR (MDRD) Af Amer 96, Est GFR (MDRD) Non-Af 79, BUN/Creatinine Ratio 20.2 H, Glucose 92, Calcium 8.5 07/05/24 05:48: WBC 4.4, RBC 3.49 L, Hgb 8.3 L, Hct 27.4 L, MCV 78.5 L, MCH 23.8 L, MCHC 30.3 L, RDW Std Deviation 49.2 H, RDW Coeff of David 17.3 H, Plt Count 308, MPV 10.4, Immature Gran % (Auto) 0.700, Neut % (Auto) 60.1, Lymph % (Auto) 25.7, [place] % (Auto) 9.7, Eos % (Auto) 2.9, Baso % (Auto) 0.9, Absolute Neuts (auto) 2.7, Absolute Lymphs (auto) 1.14, Nucleated RBC % 0, Sodium 142, Potassium 3.8, Chloride 112 H, Carbon Dioxide 25.0, Anion Gap 5, BUN 12, Creatinine 0.66, Estim Creat Clear Calc 48.94, Est GFR (MDRD) Af Amer 110, Est GFR (MDRD) Non-Af 91, BUN/Creatinine Ratio 18.2, Glucose 90, Calcium 8.8, Phosphorus 3.5, Magnesium 2.2 Physical Exam Narrative GENERAL: cooperative HEENT: Atraumatic; normocephalic EYES; Anicteric, Normal Conjunctiva NECK; supple, normal thyroid, RESPIRATORY: Diminished to auscultation CARDIOVASCULAR: Regular S1 S2, GI: soft, normoactive bowel sounds, : No Renal angle tenderness; EXTREMITIES: No edema, no clubbing, MUSCULOSKELETAL: no muscle wasting NEURO: Awake; no lateralizing signs. SKIN: No Rash PSYCH; Flat affect Assessment & Plan Assessment/Plan (1) Upper GI bleed: (2) Acute blood loss anemia: PLAN: Plan Patient is an 83-year-old lady admitted with symptomatic anemia with guaiac positive stools 1. Acute symptomatic anemia ? Patient did have guaiac positive stools. Patient was transfused with 1 unit PRBC for the emergency department started on Protonix admitted to regular nursing floor with consultation placed to GI for endoscopic evaluation. Subsequent monitoring with daily H&H ordered ?07/05/2024; patient underwent EGD the day prior was found to have erythematous duodenopathy. Plan is for patient to complete workup with colonoscopy on 07/06/[address] Méndez 2. 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 Previous history of small bowel volvulus 4. Advanced dementia ? Supportive 5. DVT prophylaxis ? Chemoprophylaxis contraindicated in view of patient presentation Time spent in the patient's overall evaluation,decision-making process, review of diagnostic data, adjustment of management, discussion with other providers, nursing nursing and ancillary staff involved in patient's care documentation, 36 Minutes Charges/Coding Visit Charges Inpatient E&M: 13829 Subs Hosp L2
[2024-07-05 08:09] VITALS: O2SAT 97
--- NOTE | 2024-07-05 08:35 | POSTOPAN2_ITS ---
Anesthesia Postop Eval I Sum Postop Eval Completion status Anesthesia document: Postop Eval 1 completed: Yes Anesthesia Postop Eval I Summary Anesthesia Postop Eval I Summary: Anesthesia Postop Eval I: Assessment Summary Airway patent Yes 07/04/24 16:28 PROCEDURES TECH.CSIR Spontaneous unlabored Yes 07/04/24 16:28 PROCEDURES TECH.CSIR respirations Mental status nausea No 07/04/24 16:28 PROCEDURES TECH.CSIR Vomiting No 07/04/24 16:28 PROCEDURES TECH.CSIR Anesthesia Postop Eval I: Fluid Summary Crystalloid volume administer 200 07/04/24 16:28 PROCEDURES TECH.CSIR (ml) Colloids volume administered ( ml) Blood Product volume administered (ml) Total IV fluid infused 200 07/04/24 16:28 PROCEDURES TECH.CSIR Anesthesia Postop Eval I: Summary Notes Anesthesia Complication No 07/04/24 16:28 PROCEDURES TECH.CSIR Anesthesia Complication Comment: Post-operative progress note Anesthesia: Postop Eval II Evaluation Mental status: Awake Pain Level: 0 nausea: No Vomiting: No
--- NOTE | 2024-07-05 08:35 | PCM.POSTANE2 ---
Anesthesia Postop Eval I Sum Postop Eval Completion status Anesthesia document: Postop Eval 1 completed: Yes Anesthesia Postop Eval I Summary Anesthesia Postop Eval I Summary: Anesthesia Postop Eval I: Assessment Summary Airway patent Yes 07/04/24 16:28 ANALYSIS SPECIALIST.CSIR Spontaneous unlabored Yes 07/04/24 16:28 ANALYSIS SPECIALIST.CSIR respirations Mental status nausea No 07/04/24 16:28 ANALYSIS SPECIALIST.CSIR Vomiting No 07/04/24 16:28 ANALYSIS SPECIALIST.CSIR Anesthesia Postop Eval I: Fluid Summary Crystalloid volume administer 200 07/04/24 16:28 ANALYSIS SPECIALIST.CSIR (ml) Colloids volume administered ( ml) Blood Product volume administered (ml) Total IV fluid infused 200 07/04/24 16:28 ANALYSIS SPECIALIST.CSIR Anesthesia Postop Eval I: Summary Notes Anesthesia Complication No 07/04/24 16:28 ANALYSIS SPECIALIST.CSIR Anesthesia Complication Comment: Post-operative progress note Anesthesia: Postop Eval II Evaluation Mental status: Awake Pain Level: 0 nausea: No Vomiting: No
[2024-07-05 09:30] VITALS: BP 109/75; PULSE 83; RESP 18; TEMP 36.6; O2SAT 100
[2024-07-05] MEDS: Pantoprazole Sodium 40 MG in 0.9% Normal Saline (100mL MB+) 100 ML 330 MG IV ×2 (10:09→21:27)
[2024-07-05] MEDS: 0.9% Saline Lock 10 ML Syringe IV ×2 (10:12→21:27)
[2024-07-05] MEDS: Bisacodyl 5 MG Tablet 20 MG PO (14:30)
[2024-07-05 15:30] VITALS: BP 108/87; PULSE 73; RESP 18; TEMP 36.7; O2SAT 97
[2024-07-05] MEDS: Polyethylene Glycol 3350 BOWEL PREP PO (16:57)
[2024-07-05 22:31] VITALS: BP 112/72; PULSE 69; RESP 16; TEMP 36.6; O2SAT 99
[2024-07-06] VITALS (12 sets, daily range): BP systolic 86–123; BP diastolic 60–82; PULSE 62–87; RESP 16; TEMP 36–36.8; O2SAT 93–99; BMI 25.0
--- NOTE | 2024-07-06 | IMM_PTH ---
PATIENT: JAMIE ROLLE LOC: [facility] U#:[id number] AGE/SX: 83/F ROOM: [facility] RE07/05/[address]: Dr. Nicholas Maki MD : 1940 BED: 1 DIS: 07/08/2024 SPEC #: [id number] RECD: 07/08/24 12:06 STATUS: ALEXANDRO REPaula #: [id number] JESSICA: 07/06/24 00:[address]: Jose Méndez DEPT: IMMUNOHISTOCHEMISTRY RECD BY: Jamil Villafana ENTERED: 07/08/24 12:07 SP TYPE: IMMUNO OTHR DR: MD Dr. Nicholas Walter MD Dr. Prakash Chand, MD Jessica Franklin, [facility], REBAR FABRICATOR-C Tissues: Transverse colon Procedures: MLH-1 (add) MSH6 (add) Anti-PMS2 (add) KI-67 (add) P53 (add) MOC-31 (add) HER-2-SHELIA (initial) PHYSICIAN & INSTITUTION [address] [address] SPECIMEN INFORMATION: Tissue Source: Transverse colon mass biopsy Clinical Info: Upper GI bleed, acute blood loss anemia Specimen Number: [id number] CPT code: 30017,[id number] METHODOLOGY: Deparaffinized sections of prefer/formalin-fixed tissue or PAP/DQ stained slides are incubated with monoclonal/polyclonal antibodies/oligonucleotide probes. Localization is made via biotin free immunoperoxidase method. Appropriate controls are performed and reacted as expected. Results on target cell population are indicated in the following table: RESULTS: ANTIBODY / CLONE RESULT Her-2neu (CB11) negative (0) MOC-31 (4561) positive MLH-1 (M1) positive MSH2 (25D12) positive MSH6 (44) positive PMS2 ([id number]) positive Ki-67 (30-9) positive, high P53 (DO-7) positive (missense mutation pattern) INTERPRETATION: Transverse colon mass, biopsy: Invasive adenocarcinoma. Negative (no loss of mismatch protein; no microsatellite instability detected). 07/09/2024
--- NOTE | 2024-07-06 | COLBX_PTH ---
PATIENT: JAMIE ROLLE LOC: [facility] U#:[id number] AGE/SX: 83/F ROOM: [facility] RE07/05/[address]: Dr. Nicholas Maki MD : 1940 BED: 1 DIS: 07/08/2024 SPEC #: [id number] RECD: 07/07/24 07:09 STATUS: ALEXANDRO JACOBS #: [id number] JESSICA: 07/06/24 00:[address]: Jose Méndez DEPT: SURGICAL PATHOLOGY RECD BY: Jerman Forrest ENTERED: 07/07/24 10:01 SP TYPE: COLON BX OTHR DR: MD Dr. Nicholas Walter MD Dr. 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 / 07/08/2024 COMMENT Immunohistochemistry ([id number]) for microsatellite instability (mismatch repair of protein) will be performed and the results will be reported separately. Case has been reviewed in consultation with Dr. Mauro who concurs with the above diagnosis. IDC:AM MICROSCOPIC DESCRIPTION Slides are reviewed. GROSS DESCRIPTION Received in fixative is one container labeled with the patient's name and designated Transverse colon mass biopsy. The specimen consists of multiple irregular fragments of light chow soft tissue that in aggregate measure 2.0 x 0.5 x 0.1 cm. The specimen is totally submitted in one cassette. BALTAZAR. 07/07/2024 TC:0 CPT:34072
[2024-07-06 05:41] LABS: Absolute Lymphocyte Count 1.21 X10^3/uL (0.83-4.51); Absolute Neutrophil Count 2.5 X10^3/uL (2.0-7.7); Basophil# 0.06 X10^3/uL; Basophil% 1.3 % (0-1); Eosinophil# 0.15 X10^3/uL; Eosinophils% 3.4 % (0-5); Hematocrit 29.5 % (37-47); Hemoglobin 8.9 g/dL (12.0-15.0); Lymphocyte # 1.21 X10^3/ul (0.83-4.51); Lymphocyte % 27.1 % (19-41); Mean Corp Hgb Conc 30.2 g/dL (32-36); Mean Corpuscular Hgb 24.1 pg (27.0-32.0); Mean Corpuscular Volume 79.9 fL (81-99); Mean Platelet Vol. 9.8 fl (6.2-12.0); Monocyte# 0.51 X10^3/uL; Monocyte% 11.4 % (0-10); NRBC Flagged by Analyzer 0 % (0-5); Neutrophil # 2.51 X10^3/uL (2.7-7.7); Neutrophil % 56.4 % (47-70); Platelet Count 318 K/mm3 (150-450); RBC Distribution Width CV 17.9 % (11.6-14.6); RBC Distribution Width SD 51.5 fl (35.1-43.9); Red Blood Count 3.69 M/mm3 (4.2-5.4); White Blood Count 4.5 K/mm3 (4.4-11.0)
[2024-07-06 06:03] LABS: Anion Gap 6 (5-15); BUN 9 mg/dL (7-18); BUN/Creat Ratio 9.8 RATIO (10-20); Calcium,Total 8.5 mg/dL (8.5-10.1); Chloride 110 mmol/L (98-107); Creatinine, Serum 0.92 mg/dL (0.55-1.02); EST Glomerular Filtration Rate 62 mL/min (>60); Est Glom Filt Rate - Afr Amer 75 mL/min (>60); Estimated Creatinine Clearance 42.56 ml/min; Glucose 112 mg/dL (74-106); Potassium 3.4 mmol/L (3.5-5.1); Sodium Level 140 mmol/L (136-145)
--- NOTE | 2024-07-06 09:41 | CASEMGMT ---
Addendum entered by Luanne Campoverde 07/06/24 10:09: Correction. Updates faxed to Nena Jackson @ [facility]. Luanne Campoverde DC Planning Asst. Addendum entered by Luanne Campoverde 07/06/24 09:50: Fax confirmation rec'd. Luanne Campoverde DC Planning Asst. Original Note: Discharge Planning Updates faxed to Ivette leo/[facility]. Luanne Campoverde DC Planning Asst.
[2024-07-06] MEDS: Pantoprazole Sodium 40 MG in 0.9% Normal Saline (100mL MB+) 100 ML 330 MG IV ×2 (10:48→23:06)
--- NOTE | 2024-07-06 11:09 | CASEMGMT ---
Patient is from [facility]. SW met with patient. Introduced self and role at [facility]. Patient confirmed her plan is to return to [place] at discharge. Patient said family will transport her. Plan: d/c back to [facility] when medically ready. Marily HUANG
[2024-07-06] MEDS: Lactated Ringers 1,000 ML 15 ML IV (15:41)
--- NOTE | 2024-07-06 15:46 | PCM.PRE.AN2 ---
ASA Classification* ASA Classification ASA Classification: 2 Assessment & Plan Anesthesia* Anesthesia Assessment Anesthesia Assessment: Discussed sedation and/or anesthesia options, risks, benefits, and alternatives with patient/parents/legal guardian/POA. Questions invited. The patient/parents/legal guardian/POA seems to understand and agrees to proceed with anesthesia plan. Reviewed the physical assessment, medical history, allergy history and patient home medications list prior to surgery/procedure/anesthetic and documented any changes. Performed airway and anesthesia risk assessments. Anesthesia Type Anesthesia Type: MAC History Source History Obtained from:: Patient and Chart Anesthesia Focused Assessment* Temperature: 98.3 F Pulse Rate: 87 Blood Pressure: 94/75 Respiratory Rate: 16 Pulse Ox: 93 Oxygen Delivery Method: Room Air Airway Assessment Mouth opens: >3 cm Mallampati Score: I Teeth Condition: Partial (upper partial out.) Neck Range of motion (ROM): Full ROM Focused Labs Anesthesia Preop lab: CBC WBC 4.5 K/mm3 (4.4-11.0) 07/06/24 05:31 RBC 3.69 M/mm3 (4.2-5.4) L 07/06/24 05:31 Hgb 8.9 g/dL (12.0-15.0) L 07/06/24 05:31 Hct 29.5 % (37-47) L 07/06/24 05:31 Plt Count 318 K/mm3 (150-450) 07/06/24 05:31 CHEMISTRY Potassium 3.4 mmol/L (3.5-5.1) L 07/06/24 05:31 Sodium 140 mmol/L (136-145) 07/06/24 05:31 Magnesium 2.2 mg/dL (1.6-2.6) 07/05/24 05:48 Phosphorus 3.5 mg/dL (2.5-4.9) 07/05/24 05:48 BUN 9 mg/dL (7-18) 07/06/24 05:31 Creatinine 0.92 mg/dL (0.55-1.02) 07/06/24 05:31 Glucose 112 mg/dL (74-106) H 07/06/24 05:31 TSH 1.880 uIU/mL (0.358-3.740) 06/30/24 14:23 COAG PT 13.4 SECONDS (11.7-14.9) 07/03/24 20:59 Pre-Assessment Diagnosis/Proposed Procedure Planned Operative Procedure(s): colonoscopy Anesthesia History Anesthesia History - display card writer: Anesthesia History - display card writer Hx Hospitalization Any Problems With Anesthesia No 07/06/24 04:48 Cholinesterase deficiency No 07/06/24 04:48 You/Your Family Experience No 07/06/24 04:48 fever (hyperthermia) with Relationship Recent Exposure to Contagious No 07/06/24 04:48 Disease Does patient have nerve No 07/06/24 04:48 stimulator Patient instructed to have No 07/06/24 04:48 device shut off --Does patient have Pacemaker No 07/06/24 14:27 or ICD? When Was Last Pacemaker Check QUESTION #4 FULL TEXT: You/Your Family Experience fever (hyperthermia) with Anesthesia Last Oral Intake Last Oral intake: Last Oral Intake NPO since 13:15 07/06/24 14:27 Meds taken in AM with sips of No 07/06/24 14:27 water? Meds patient instructed to take am of surgery PONV PONV - display card writer: PONV - display card writer Female HX of Motion Sickness HX of N/V After Surgery Non-Smoker Duration of Surgery greater than 60 minutes Number of Risk Factors PONV Score Height & Weight Height & Weight: Anesthesia: Height & Weight Height 5 ft 4 in 07/06/24 14:27 Weight: 66 kg 07/06/24 14:27 Body Mass Index (BMI) 25.0 07/06/24 14:27 Respiratory Assessment Respiratory Assessment - display card writer: Respiratory Tract Infection Hx - display card writer Hx Respiratory Tract Infection No 07/06/24 04:48 STOP Sleep Apnea STOP Sleep Apnea - display card writer: STOP Sleep Apnea - display card writer Hx Hypertension No 07/04/24 13:32 Hx Sleep Apnea No 07/04/24 16:39 CPAP BIPAP Do you snore loudly (louder No 07/03/24 19:59 than talking or can be heard Do you often feel tired/ No 07/03/24 19:59 fatigued/ sleepy during daytime? Has anyone observed you stop No 07/03/24 19:59 breathing during sleep? STOP Results Negative 07/03/24 19:59 QUESTION #5 FULL TEXT : Do you snore loudly (louder than talking or can be heard through closed doors)? 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 Specify any problems Hx of Preganancy in last 3 N/A 07/03/24 19:59 Months Nurse Filling Out Transfusion RSMAILES 07/03/24 19:59 & Questions: Date: 07/03/24 07/03/24 19:59 Time: 20:52 07/03/24 19:59 Patient unable to answer at this time (ie. confused, unrespo /Reproduction History /Reproductive History - display card writer: /Reproductive Hx- display card writer Hx Now No 07/06/24 04:48 Gestational Age (in weeks): EDC: Hx Hx Para Hx Section SAB No 07/06/24 04:48 Active Medications Active Medications: Current Medications Generic Name Dose Route Start Last Admin Trade Name Freq PRN Reason Stop Dose Admin Acetaminophen 650 mg 07/03/24 20:35 07/04/24 23:24 Acetaminophen 325 Mg Tablet PO 650 mg Q6H PRN PRN Administration Pain 1-10 Or Fever>100.7 Pantoprazole Sodium 40 mg/ 110 mls @ 330 mls/hr 07/03/24 22:00 07/06/24 11:08 Sodium Chloride IV Infused Q12 COURTNEY Infusion Lactated Ringer's 1,000 mls @ 15 mls/hr 07/06/24 15:45 07/06/24 15:41 IV 15 mls/hr .Q48H COURTNEY Administration Nitroglycerin 0.4 mg 07/03/24 20:35 Nitroglycerin (Inpatient Use) 0.4 Mg Tab.Subl SL Q5M PRN CARDIAC/CHEST PAIN Prochlorperazine Edisylate 5 mg 07/03/24 20:35 Prochlorperazine 10 Mg/2 Ml Vial IV Q4H PRN PRN Breakthrough Nausea/Vomiting Senna/Docusate Sodium 2 tablet 07/03/24 20:35 Senna/Docusate Sodium 1 Tablet PO BID PRN PRN Constipation Sodium Chloride 10 - 40 ml 07/03/24 20:10 07/05/24 21:27 0.9% Saline Lock 10 Ml Syringe IV 10 ml UD PRN Administration SALINE FLUSH PFSH Medical History Dementia Home Medications ?Medication ?Instructions ?Recorded ?Last Taken ?Type NK 07/03/24 Unknown History Allergy/AdvReac Type Severity Reaction Status Date / Time No Known Allergies Allergy Verified 07/03/24 15:20 Surgical History (Updated 07/06/24 @ 15:[address] Jonas Curtis MD) Hx of esophagogastroduodenoscopy S/P tonsillectomy Status post small bowel resection Social History Smoking Status: Former smoker Review of Systems (Anesthesia) ROS Narrative System reviewed and no additional complaints, except as documented.
--- NOTE | 2024-07-06 17:24 | PN.HOSP_ITS ---
Subjective Subjective Doing well, no issues overnight Objective Data Objective Data Vital Signs: Vital Signs Temp Pulse Resp BP Pulse Ox O2 Del Method 98.3 F 87 16 94/75 93 Room Air 07/06/24 15:56 07/06/24 15:56 07/06/24 15:56 07/06/24 15:56 07/06/24 15:56 07/06/24 15:56 Oxygen Delivery Method Room Air Weight: 145 lb 8.081 oz Body Mass Index (BMI) 25.0 Intake & Output: Intake and Output for Last 24 Hours 07/05/24 07/06/24 07/07/24 03:59 03:59 03:59 Intake Total 1340 / 1340 940 / 940 110 / 110 Output Total 100 / 100 Balance 1240 / 1240 940 / 940 110 / 110 Lab / Micro Data 07/06/24 05:31 07/06/24 05:31 Labs: Laboratory Results - last 24 hr 07/06/24 05:31: WBC 4.5, RBC 3.69 L, Hgb 8.9 L, Hct 29.5 L, MCV 79.9 L, MCH 24.1 L, MCHC 30.2 L, RDW Std Deviation 51.5 H, RDW Coeff of David 17.9 H, Plt Count 318, MPV 9.8, Immature Gran % (Auto) 0.400, Neut % (Auto) 56.4, Lymph % (Auto) 27.1, Towns % (Auto) 11.4 H, Eos % (Auto) 3.4, Baso % (Auto) 1.3 H, Absolute Neuts (auto) 2.5, Absolute Lymphs (auto) 1.21, Nucleated RBC % 0, Sodium 140, P otassium 3.4 L, Chloride 110 H, Carbon Dioxide 24.0, Anion Gap 6, BUN 9, Creatinine 0.92, Estim Creat Clear Calc 42.56, Est GFR (MDRD) Af Amer 75, Est GFR (MDRD) Non-Af 62, BUN/Creatinine Ratio 9.8 L, Glucose 112 H, Calcium 8.5 Micro: Microbiology 07/03/24 21:30 Urine, Clean Catch Urine Culture - Final Klebsiella pneumoniae sp pneum Physical Exam Narrative General: Alert, Oriented x3, Cooperative, No apparent distress HEENT: Atraumatic, PERRLA, EOMI, Normocephalic, hard of hearing Oral: Moist Mucosa Neck: Supple, No JVD Lungs: Diminished, Normal air movement, No rhonchi, No wheeze, No rales Cardiovascular: Regular rate, Regular Rhythm, Normal S1, Normal S2, No murmurs Abdomen: Soft, Non Tender, Non-Distended, No Hepato-splenomegaly Extremities: No edema, Capillary Refill Less than 3 Seconds Skin: No rashes, No breakdown Musculoskeletal: No Tenderness to Palpation of Joints or Extremities Neurological: No focal neurological deficits, Motor Exam 5/5 strength throughout, Sensory exam intact to light touch and pain Psych/Mental Status: Normal Affect, Appropriate Assessment & Plan Assessment/Plan (1) Upper GI bleed: (2) Acute blood loss anemia: PLAN: Plan 1. Acute symptomatic anemia ? Patient did have guaiac positive stools. Patient was transfused with 1 unit PRBC for the emergency department started on Protonix admitted to regular nursing floor with consultation placed to GI for endoscopic evaluation. Subsequent monitoring with daily H&H ordered ?07/05/2024; patient underwent EGD the day prior was found to have erythematous duodenopathy. Plan is for patient to complete workup with colonoscopy on 07/06/[address] Méndez 07/06/2024: Plan for colonoscopy today 2. 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 Previous history of small bowel volvulus 4. Advanced dementia ? Supportive DVT: SCDs Charges/Coding Visit Charges Inpatient E&M: 91158 Subs Hosp L2
--- NOTE | 2024-07-06 18:16 | PCM.POST.ANE ---
Anesthesia: Postop Eval I Current Vital Signs Temperature: 97 F Pulse Rate: 75 Blood Pressure: 88/60 Respiratory Rate: 16 Pulse Ox: 99 Oxygen Delivery Method: Room Air Assessment Airway patent: Yes Spontaneous unlabored respirations: Yes Mental status: Awake and Calm nausea: No Vomiting: No Anesthesia Complication: No Fluid Hydration Crystalloid volume administer (ml): 500 Total IV fluid infused: 500 Progress Note Anesthesia document: Postop Eval 1 completed: Yes
--- NOTE | 2024-07-06 18:19 | POSTOPAN2_ITS ---
Anesthesia Postop Eval I Sum Postop Eval Completion status Anesthesia document: Postop Eval 1 completed: Yes Anesthesia Postop Eval I Summary Anesthesia Postop Eval I Summary: Anesthesia Postop Eval I: Assessment Summary Airway patent Yes 07/06/24 18:19 ELECTRONICS TESTER.MDOT Spontaneous unlabored Yes 07/06/24 18:19 ELECTRONICS TESTER.MDOT respirations Mental status Awake,Calm 07/06/24 18:19 ELECTRONICS TESTER.MDOT nausea No 07/06/24 18:19 ELECTRONICS TESTER.MDOT Vomiting No 07/06/24 18:19 ELECTRONICS TESTER.MDOT Anesthesia Postop Eval I: Fluid Summary Crystalloid volume administer 500 07/06/24 18:19 ELECTRONICS TESTER.MDOT (ml) Colloids volume administered ( ml) Blood Product volume administered (ml) Total IV fluid infused 500 07/06/24 18:19 ELECTRONICS TESTER.OT Anesthesia Postop Eval I: Summary Notes Anesthesia Complication No 07/06/24 18:19 ELECTRONICS TESTER.OT Anesthesia Complication Comment: Post-operative progress note Anesthesia: Postop Eval II Evaluation Mental status: Awake and Calm Pain Level: 0 nausea: No Vomiting: No Complications Anesthesia Complication: No
--- NOTE | 2024-07-06 18:19 | PCM.POSTANE2 ---
Anesthesia Postop Eval I Sum Postop Eval Completion status Anesthesia document: Postop Eval 1 completed: Yes Anesthesia Postop Eval I Summary Anesthesia Postop Eval I Summary: Anesthesia Postop Eval I: Assessment Summary Airway patent Yes 07/06/24 18:19 INSPECTOR TOYS.MDOT Spontaneous unlabored Yes 07/06/24 18:19 INSPECTOR TOYS.MDOT respirations Mental status Awake,Calm 07/06/24 18:19 INSPECTOR TOYS.MDOT nausea No 07/06/24 18:19 INSPECTOR TOYS.MDOT Vomiting No 07/06/24 18:19 INSPECTOR TOYS.MDOT Anesthesia Postop Eval I: Fluid Summary Crystalloid volume administer 500 07/06/24 18:19 INSPECTOR TOYS.MDOT (ml) Colloids volume administered ( ml) Blood Product volume administered (ml) Total IV fluid infused 500 07/06/24 18:19 INSPECTOR TOYS.OT Anesthesia Postop Eval I: Summary Notes Anesthesia Complication No 07/06/24 18:19 INSPECTOR TOYS.OT Anesthesia Complication Comment: Post-operative progress note Anesthesia: Postop Eval II Evaluation Mental status: Awake and Calm Pain Level: 0 nausea: No Vomiting: No Complications Anesthesia Complication: No
--- NOTE | 2024-07-06 18:23 | CT_ITS ---
STUDY: CT CHEST, ABDOMEN T PELVIS WITH CONTRAST REASON FOR EXAM: Female, 83 years old. colon cancer RADIATION DOSAGE (If Supplied By Facility): CTDIvol = ( 23.07 ) mGy, DLP = ( 1313.35 ) mGycm TECHNIQUE: Transaxial imaging was performed following intravenous administration of IV 100mL Isovue-370. Individualized dose optimization techniques were used for this CT. COMPARISON: No relevant priors. FINDINGS: CHEST Mild bilateral perihilar interstitial thickening more pronounced in the lower lobes. There is no demonstrated pleural abnormality. Heart is normal size. There is mild coronary artery calcification Normal mediastinum. Normal hilar regions. Normal unenhanced pulmonary arteries. Mild atherosclerotic changes of the aorta without evidence for aneurysm Dorsal spine demonstrates degenerative changes ABDOMEN Mild nonspecific fatty infiltrated liver. There are 2 solid nodules in the right lobe and one in the left possibly neoplastic. Bile ducts are not dilated.. Normal gallbladder and extrahepatic biliary system. Normal spleen. Normal pancreas. Normal bilateral adrenal glands. Kidneys are not obstructed. There are multiple bilateral renal cysts which will not require additional imaging Normal visualized stomach. Normal small intestine. Postsurgical change status post resection of the mid to distal ascending colon. There are mild diverticular changes of the descending and sigmoid colon without evidence for acute diverticulitis. No evidence for acute appendicitis Atherosclerotic changes of the aorta without evidence for aneurysm. Normal inferior vena cava. Normal retroperitoneum. Normal abdominal wall. Normal osseous structures. PELVIS Normal urinary bladder. There is no pelvic fluid. There is no pelvic lymphadenopathy or mass lesion. Normal visualized pelvic arteries. Uterus not visualized status post hysterectomy Normal abdominal wall. Lumbar spine demonstrates mild spondylosis CT/CT Chest, Abd, Pel w/Contrast IMPRESSION: Postsurgical changes status post resection of the ascending colon. Solid nodules within the right and left lobe of the liver which are nonspecific in etiology although metastatic disease not MRI recommended for further evaluation Multiple bilateral renal cysts which will not require additional imaging Electronically Signed: Yang Schneider MD at 22:20 EDT ,
[2024-07-06] MEDS: 0.9% Saline Lock 10 ML Syringe IV (23:06)
[2024-07-07] VITALS (13 sets, daily range): BP systolic 82–123; BP diastolic 58–83; PULSE 65–100; RESP 14–16; TEMP 36.6–37.6; O2SAT 95–98
[2024-07-07 06:24] LABS: Absolute Lymphocyte Count 0.93 X10^3/uL (0.83-4.51); Absolute Neutrophil Count 4.8 X10^3/uL (2.0-7.7); Basophil# 0.05 X10^3/uL; Basophil% 0.8 % (0-1); Eosinophil# 0.15 X10^3/uL; Eosinophils% 2.3 % (0-5); Hematocrit 28.7 % (37-47); Hemoglobin 8.4 g/dL (12.0-15.0); Lymphocyte # 0.93 X10^3/ul (0.83-4.51); Lymphocyte % 14.3 % (19-41); Mean Corp Hgb Conc 29.3 g/dL (32-36); Mean Corpuscular Hgb 23.6 pg (27.0-32.0); Mean Corpuscular Volume 80.6 fL (81-99); Mean Platelet Vol. 10.4 fl (6.2-12.0); Monocyte# 0.57 X10^3/uL; Monocyte% 8.8 % (0-10); NRBC Flagged by Analyzer 0 % (0-5); Neutrophil # 4.78 X10^3/uL (2.7-7.7); Neutrophil % 73.3 % (47-70); Platelet Count 296 K/mm3 (150-450); RBC Distribution Width CV 18.3 % (11.6-14.6); RBC Distribution Width SD 52.8 fl (35.1-43.9); Red Blood Count 3.56 M/mm3 (4.2-5.4); White Blood Count 6.5 K/mm3 (4.4-11.0)
--- NOTE | 2024-07-07 07:26 | OP.CCLET_ITS ---
07/07/2024 Rachna Swenson [facility], Manager Community Outreach-c Re : Colonoscopy procedure for Nasra Swenson This procedure was performed on Saturday, July 06, 2024. My impressions and recommendations are as follows: Impressions : - Diverticulosis in the recto-sigmoid colon and in the sigmoid colon. - Likely malignant tumor in the transverse colon. Biopsied. Tattooed. - Malignant-appearing tumor in the colon. Biopsied. Recommendations : - Return patient to hospital page for ongoing care. - Resume previous diet. - Continue present medications. - Await pathology results. - Repeat colonoscopy in 1 year for surveillance. My findings are described in the full procedure note, which is enclosed. If I can be of further assistance, please feel free to contact me at . Sincerely, Jose Méndez, 07/07/2024 7:26:17 AM This report has been signed electronically.
--- NOTE | 2024-07-07 07:26 | OP.COLON_ITS ---
Patient Name: Nasra Kemp Procedure Date: 07/06/2024 5:35 PM Date of : 1940 Age: 83 Procedure: Colonoscopy Indications: Iron deficiency anemia Providers: Jose Méndez DO Medicines: Monitored Anesthesia Care Patient Profile: This is an 83 year old female. Refer to note in patient chart for documentation of history and physical. Last Colonoscopy: date unknown. Unable to locate last colonoscopy report. Complications: No immediate complications. Procedure: Pre-Anesthesia Assessment: - Prior to the procedure, a History and Physical was performed, and patient medications and allergies were reviewed. The patient is competent. The risks and benefits of the procedure and the sedation options and risks were discussed with the patient. All questions were answered and informed consent was obtained. Patient identification and proposed procedure were verified by the physician in the pre-procedure area. Mental Status Examination: alert and oriented. Airway Examination: normal oropharyngeal airway and neck mobility. Respiratory Examination: clear to auscultation. CV Examination: normal. Prophylactic Antibiotics: The patient does not require prophylactic antibiotics. Prior Anticoagulants: The patient has taken no anticoagulant or antiplatelet agents. ASA Grade Assessment: III - A patient with severe systemic disease. After reviewing the risks and benefits, the patient was deemed in satisfactory condition to undergo the procedure. The anesthesia plan was to use monitored anesthesia care (MAC). Immediately prior to administration of medications, the patient was re-assessed for adequacy to receive sedatives. The heart rate, respiratory rate, oxygen saturations, blood pressure, adequacy of pulmonary ventilation, and response to care were monitored throughout the procedure. The physical status of the patient was re-assessed after the procedure. After I obtained informed consent, the scope was passed under direct vision. Throughout the procedure, the patient's blood pressure, pulse, and oxygen saturations were monitored continuously. The Colonoscope was introduced through the anus and advanced to the cecum, identified by appendiceal orifice and ileocecal valve. The colonoscopy was performed without difficulty. The patient tolerated the procedure well. The quality of the bowel preparation was adequate. Scope In: 5:50:57 PM Scope Out: 6:11:19 PM Total Procedure Duration Time 0 hours 20 minutes 22 seconds Findings: The perianal and digital rectal examinations were normal. Multiple small and large-mouthed diverticula were found in the recto-sigmoid colon and sigmoid colon. An ulcerated non-obstructing large mass was found in the transverse colon. The mass was non-circumferential. The mass measured four cm in length. In addition, its diameter measured five mm. No bleeding was present. This was biopsied with a cold forceps for histology. Verification of patient identification for the specimen was done. Area was tattooed with an injection of 1 mL of Kristin ink. Impression: - Diverticulosis in the recto-sigmoid colon and in the sigmoid colon. - Likely malignant tumor in the transverse colon. Biopsied. Tattooed. - Malignant-appearing tumor in the colon. Biopsied. Recommendation: - Return patient to hospital page for ongoing care. - Resume previous diet. - Continue present medications. - Await pathology results. - Repeat colonoscopy in 1 year for surveillance. Procedure Code(s): --- Professional --- 42538, Colonoscopy, flexible; with biopsy, single or multiple 34389, Colonoscopy, flexible; with directed submucosal injection(s), any substance CPT copyright 2021 [employer]. All rights reserved. The codes documented in this report are preliminary and upon surgical coder review may be revised to meet current compliance requirements. Jose Méndez DO 07/07/2024 7:26:17 AM This report has been signed electronically. Number of Addenda: 0 Note Initiated On: 07/06/2024 5:35 PM
--- NOTE | 2024-07-07 08:04 | CON.PCM.SX_ITS ---
Assessment & Plan Assessment/Plan (1) Colonic mass: (2) Acute blood loss anemia: PLAN: Plan I have been consulted in conjunction with Dr. Augustine. She will independently evaluate this patient. Patient was found to be anemic with positive stool studies. Upper and lower scope were pursued by Dr. Méndez with findings of a colon mass within the transverse colon. Pathology is pending. Due to patient's mental status, patient's daughter, Gretta SANTIAGO), would like all of the decision making and discussions to be made directly with her. Dr. Augustine and I will plan to discuss with Gretta and patient's sister the future plan of a colectomy. At this time, we would like to wait for pathology results to determine the appropriate surgical procedure. We would also like to discuss the involved surgery and recovery with family with the consideration of the patient's history of dementia. Surgical intervention would plan to be as an outpatient as patient is stable at this time and the mass is not obstructing. Patient's daughter and sister have had the opportunity to ask and have questions answered during our phone call. We will plan to meet with family around 1300 today to further discuss appropriate plan for the patient. Patient may return to a regular at this time. HPI Consult Data Date of Consult: 07/07/24 HPI Narrative Reason for Consultation: Colon mass HPI Narrative: JAMIE ROLLE, is a 83 F who presents to the ED with increased fatigue and anemia. Patient is unable to provide much of a history as she has a history dementia. Patient resides currently at [place], however is in the process of moving to the [facility]. Majority of the patient's history is from the patient's daughter, Gretta SANTIAGO), and patient's sister. Patient is otherwise healthy and does not take any daily medications. Patient does not have any cardiac or pulmonary medical history per family members. 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 These records are unfortunately not available at this time. Patient was admitted with a Hgb of 7.0. Dr. Méndez had performed an upper and lower scope on 07/04 and 07/06. Upper scope should some duodenitis, otherwise unremarkable. 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 This was biopsied and pathology is pending. CT scan of the abdomen and pelvis was obtained with IV contrast demonstrating postsurgical changes in the ascending colon. Multiple liver nodules noted possibly metastatic disease. MRI recommended and multiple bilateral renal cysts. Patient denies any abdominal pain or discomfort. She denies any change in her bowel habits. [facility] Medical History (Updated 07/07/24 @ 11:49 by Pia WILLS PA-C) Dementia Home Medications ?Medication ?Instructions ?Recorded ?Last Taken ?Type NK 07/03/24 Unknown History Allergy/AdvReac Type Severity Reaction Status Date / Time No Known Allergies Allergy Verified 07/03/24 15:20 Surgical History (Updated 07/06/24 @ 15:[address] Jonas Curtis MD) Hx of esophagogastroduodenoscopy S/P tonsillectomy Status post small bowel resection Social History Smoking Status: Former smoker ROS Constitutional Constitutional: Reports fatigue Eyes Eyes: Reports systems reviewed and no addt'l complaints, except as documented ENT HEENT: Reports systems reviewed and no addt'l complaints, except as documented Cardiovascular Cardiovascular: Reports systems reviewed and no addt'l complaints, except as documented Respiratory/Chest Respiratory/Chest: Reports systems reviewed and no addt'l complaints, except as documented Gastrointestinal Gastrointestinal: Reports systems reviewed and no addt'l complaints, except as documented Genitourinary Genitourinary: Reports systems reviewed and no addt'l complaints, except as documented Musculoskeletal Musculoskeletal: Reports systems reviewed and no addt'l complaints, except as documented Integumentary Integumentary: Reports systems reviewed and no addt'l complaints, except as documented Neurologic Neurologic: Reports systems reviewed and no addt'l complaints, except as documented Psychiatric Psychiatric: Reports systems reviewed and no addt'l complaints, except as documented Endocrine Endocrinology: Reports systems reviewed and no addt'l complaints, except as documented Hematologic/Lymphatic Hematologic/Lymphatic: Reports systems reviewed and no addt'l complaints, except as documented Allergic/Immunologic Allergic/Immunologic: Reports systems reviewed and no addt'l complaints, except as documented Physical Exam Const alert, oriented x3 and no apparent distress HEENT normocephalic and head/scalp atraumatic Eyes PERRL Neck full ROM Lymph Lymphatic: no lymphadenopathy noted Resp normal respiratory effort and clear to auscultation bilaterally Cardio regular rate and regular rhythm GI normal to inspection, nondistended, normoactive bowel sounds GI Narrative: Abdomen- nicely healed midline incision from superior to the umbilicus extending downward towards the pelvis. Back/Spine no CVA tenderness Extremity normal to inspection Skin no rashes or lesions noted Neuro no focal motor deficits and no sensory deficits noted Psych Appearance: grossly normal Attitude: calm Mood & Affect: anxious Thought Process: confused Lab / Micro Data 07/07/24 05:57 07/07/24 05:57 Labs: Laboratory Results - last 24 hr 07/07/24 05:57: WBC 6.5, RBC 3.56 L, Hgb 8.4 L, Hct 28.7 L, MCV 80.6 L, MCH 23.6 L, MCHC 29.3 L, RDW Std Deviation 52.8 H, RDW Coeff of David 18.3 H, Plt Count 296, MPV 10.4, Immature Gran % (Auto) 0.500, Neut % (Auto) 73.3 H, Lymph % (Auto) 14.3 L, [place] % (Auto) 8.8, Eos % (Auto) 2.3, Baso % (Auto) 0.8, Absolute Neuts (auto) 4.8, Absolute Lymphs (auto) 0.93, Nucleated RBC % 0 Micro: Microbiology 07/03/24 21:30 Urine, Clean Catch Urine Culture - Final Klebsiella pneumoniae sp pneum Imaging Radiology Impression Chest/Abdomen/Pelvis CT 07/06/24 18:23 IMPRESSION: Postsurgical changes status post resection of the ascending colon. Solid nodules within the right and left lobe of the liver which are nonspecific in etiology although metastatic disease not MRI recommended for further evaluation Multiple bilateral renal cysts which will not require additional imaging Electronically Signed: Yang Schneider MD at 22:20 EDT , Charges/Coding Visit Charges Office Visits / Consults: 24353 IP Consult L3
[2024-07-07] MEDS: Pantoprazole Sodium 40 MG in 0.9% Normal Saline (100mL MB+) 100 ML 330 MG IV ×2 (08:34→23:21)
[2024-07-07] MEDS: 0.9% Saline Lock 10 ML Syringe IV ×2 (08:34→23:22)
[2024-07-07 10:19] LABS: Anion Gap 9 (5-15); BUN 7 mg/dL (7-18); BUN/Creat Ratio 8.5 RATIO (10-20); Calcium,Total 9.2 mg/dL (8.5-10.1); Chloride 109 mmol/L (98-107); Creatinine, Serum 0.83 mg/dL (0.55-1.02); EST Glomerular Filtration Rate 70 mL/min (>60); Est Glom Filt Rate - Afr Amer 85 mL/min (>60); Estimated Creatinine Clearance 47.17 ml/min; Glucose 92 mg/dL (74-106); Potassium 3.7 mmol/L (3.5-5.1); Sodium Level 142 mmol/L (136-145)
--- NOTE | 2024-07-07 12:00 | ANES.CONFIRM ---
Anesthesia: Confirm Documents Multiple Procedures on Account (2) Confirmed Documents: Yes
--- NOTE | 2024-07-07 12:05 | CASEMGMT ---
Addendum entered by Luanne Campoverde 07/07/24 12:25: Fax confirmation rec'd. Luanne Campoverde DC Planning Asst. Original Note: Discharge Planning Updates faxed to [place]. Luanne Campoverde DC Planning Asst.
--- NOTE | 2024-07-07 13:16 | CHAPLAIN ---
Type of Pastoral Visit _x__ Initial Visit ___ Follow-up Visit ___ On-call Visit ___ General Patient Visit ___ Spiritual Assessment ___ Family Conference ___ Bereavement ___ Rapid Response ___ Code Blue ___ Other (describe below) Pastoral Care Referral From _x__ Patient ___ Family ___ Nurse ___ Physician ___ Market Manager ___ Power Brake Operator ___ Other (describe below) Sacrament/Intervention _x__ Active listening ___ Anointing ___ Protestant ___ Bereavement ___ Communion ___ Whitney exploration ___ _x__ Life review _x__ Prayer ___ Reconciliation ___ Sacrament of Sick _x__ Supportive presence ___ Wedding ___ Other (describe below) Pastoral Comments patient got off the phone when this content management specialist entered the room; pt [place] that she said encouraged me; pt acknowledges that she has only one hearing aid in place and isn't able to find her other aid; later this content management specialist asked RN to help her find it as this content management specialist was unable to see or find it in the room; pt is quite talkative and admits the same; pt has family in [place] and elsewhere but moved to [place] to be closer to a daughter and family; pt is unable to identify any specific concerns and is hopeful to go back to her [facility] soon
--- NOTE | 2024-07-07 14:53 | PCM.PN.HOSP ---
Subjective Subjective Doing well, no issues overnight Objective Data Objective Data Vital Signs: Vital Signs Temp Pulse Resp BP Pulse Ox O2 Del Method 98.0 F 80 16 105/71 98 Room Air 07/07/24 08:31 07/07/24 08:31 07/07/24 08:31 07/07/24 08:31 07/07/24 10:26 07/07/24 10:26 Oxygen Delivery Method Room Air Weight: 145 lb 8.081 oz Body Mass Index (BMI) 25.0 Intake & Output: Intake and Output for Last 24 Hours 07/06/24 07/07/24 07/08/24 03:59 03:59 03:59 Intake Total 940 / 940 1470 / 1470 420 / 420 Balance 940 / 940 1470 / 1470 420 / 420 Lab / Micro Data 07/07/24 05:57 07/07/24 05:57 Labs: Laboratory Results - last 24 hr 07/07/24 05:57: WBC 6.5, RBC 3.56 L, Hgb 8.4 L, Hct 28.7 L, MCV 80.6 L, MCH 23.6 L, MCHC 29.3 L, RDW Std Deviation 52.8 H, RDW Coeff of David 18.3 H, Plt Count 296, MPV 10.4, Immature Gran % (Auto) 0.500, Neut % (Auto) 73.3 H, Lymph % (Auto) 14.3 L, [place] % (Auto) 8.8, Eos % (Auto) 2.3, Baso % (Auto) 0.8, Absolute Neuts (auto) 4.8, Absolute Lymphs (auto) 0.93, Nucleated RBC % 0, Sodium 142, Potassium 3.7, Chloride 109 H, Carbon Dioxide 24.0, Anion Gap 9, BUN 7, Creatinine 0.83, Estim Creat Clear Calc 47.17, Est GFR (MDRD) Af Amer 85, Est GFR (MDRD) Non-Af 70, BUN/Creatinine Ratio 8.5 L, Glucose 92, Calcium 9.2 Micro: Microbiology 07/03/24 21:30 Urine, Clean Catch Urine Culture - Final Klebsiella pneumoniae sp pneum Radiography Diagnostic Testing: Radiology Impression Chest/Abdomen/Pelvis CT 07/06/24 18:23 IMPRESSION: Postsurgical changes status post resection of the ascending colon. Solid nodules within the right and left lobe of the liver which are nonspecific in etiology although metastatic disease not MRI recommended for further evaluation Multiple bilateral renal cysts which will not require additional imaging Electronically Signed: Yang Schneider MD at 22:20 EDT Reading Location ID and State: [facility] / [place] Tel , Service support , Physical Exam Narrative General: Alert, Oriented x3, Cooperative, No apparent distress HEENT: Atraumatic, PERRLA, EOMI, Normocephalic, hard of hearing Oral: Moist Mucosa Neck: Supple, No JVD Lungs: Diminished, Normal air movement, No rhonchi, No wheeze, No rales Cardiovascular: Regular rate, Regular Rhythm, Normal S1, Normal S2, No murmurs Abdomen: Soft, Non Tender, Non-Distended, No Hepato-splenomegaly Extremities: No edema, Capillary Refill Less than 3 Seconds Skin: No rashes, No breakdown Musculoskeletal: No Tenderness to Palpation of Joints or Extremities Neurological: No focal neurological deficits, Motor Exam 5/5 strength throughout, Sensory exam intact to light touch and pain Psych/Mental Status: Normal Affect, Appropriate Assessment & Plan Assessment/Plan (1) Upper GI bleed: (2) Acute blood loss anemia: PLAN: Plan 1. Acute symptomatic anemia ? Patient did have guaiac positive stools. Patient was transfused with 1 unit PRBC for the emergency department started on Protonix admitted to regular nursing floor with consultation placed to GI for endoscopic evaluation. Subsequent monitoring with daily H&H ordered ?07/05/2024; patient underwent EGD the day prior was found to have erythematous duodenopathy. Plan is for patient to complete workup with colonoscopy on 07/06/[address] Méndez 07/06/2024: Plan for colonoscopy today 07/07/2024: Colonoscopy demonstrated mid transverse colon polyp concerning for malignancy. General surgery does not plan admission however they would like her hemoglobin to about 10 and will plan to repeat a CT of her abdomen pelvis with p.o. and IV contrast tomorrow 2. 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 Previous history of small bowel volvulus 4. Advanced dementia ? Supportive DVT: SCDs Charges/Coding Visit Charges Inpatient E&M: 26188 Subs Hosp L2
[2024-07-08 05:00] VITALS: BP 120/74; PULSE 68; RESP 18; TEMP 36.7; O2SAT 94
[2024-07-08 07:18] LABS: Absolute Lymphocyte Count 1.21 X10^3/uL (0.83-4.51); Absolute Neutrophil Count 3.4 X10^3/uL (2.0-7.7); Basophil# 0.07 X10^3/uL; Basophil% 1.3 % (0-1); Eosinophil# 0.15 X10^3/uL; Eosinophils% 2.8 % (0-5); Hematocrit 34.5 % (37-47); Hemoglobin 10.6 g/dL (12.0-15.0); Lymphocyte # 1.21 X10^3/ul (0.83-4.51); Lymphocyte % 22.4 % (19-41); Mean Corp Hgb Conc 30.7 g/dL (32-36); Mean Corpuscular Hgb 24.2 pg (27.0-32.0); Mean Corpuscular Volume 78.8 fL (81-99); Mean Platelet Vol. 9.8 fl (6.2-12.0); Monocyte# 0.52 X10^3/uL; Monocyte% 9.6 % (0-10); NRBC Flagged by Analyzer 0 % (0-5); Neutrophil # 3.43 X10^3/uL (2.7-7.7); Neutrophil % 63.5 % (47-70); Platelet Count 283 K/mm3 (150-450); RBC Distribution Width SD 53.4 fl (35.1-43.9); Red Blood Count 4.38 M/mm3 (4.2-5.4); White Blood Count 5.4 K/mm3 (4.4-11.0)
[2024-07-08 07:39] LABS: Anion Gap 5 (5-15); BUN 11 mg/dL (7-18); BUN/Creat Ratio 12.9 RATIO (10-20); Chloride 112 mmol/L (98-107); Creatinine, Serum 0.85 mg/dL (0.55-1.02); EST Glomerular Filtration Rate 68 mL/min (>60); Est Glom Filt Rate - Afr Amer 82 mL/min (>60); Estimated Creatinine Clearance 46.06 ml/min; Glucose 98 mg/dL (74-106); Potassium 3.7 mmol/L (3.5-5.1); Sodium Level 142 mmol/L (136-145)
[2024-07-08 08:12] LABS: Carcinoembryonic Antigen 2.3 ng/mL (0.0-4.7)
--- NOTE | 2024-07-08 08:25 | CT_ITS ---
STUDY: CT ABDOMEN AND PELVIS WITH CONTRAST REASON FOR EXAM: Female, 83 years old. Transverse colon mass.Previous had motion artifact RADIATION DOSAGE (If Supplied By Facility): CTDIvol = ( 14.27 ) mGy, DLP = ( 795.5 ) mGycm TECHNIQUE: Transaxial images were obtained from the dome of the diaphragm to the symphysis pubis without oral contrast. IV 100mL Isovue-300 was administered. Sagittal and coronal images were reconstructed. Individualized dose optimization techniques were used for this CT. COMPARISON: Comparison is made with prior examination July 06, 2024. FINDINGS: Minimal degree of dependent bibasilar atelectasis. The visualized portions of the heart are within normal limits. There is decreased attenuation of the liver consistent with steatosis. There is a 6.6 mm cystic nodule in the anterior aspect of the left lobe of the liver. This also evidence of 2, adjacent well-defined hypodensities in the mid lateral aspect of the right lobe of liver measuring 1.2 cm. These most likely represents cysts although correlation with ultrasound is recommended for further evaluation. Normal gallbladder and extrahepatic biliary system. Normal spleen. Normal pancreas. Normal bilateral adrenal glands. There are 2 adjacent cysts in the lower pole of the right kidney. The larger cyst measures 2.1 cm. 2 dominant cysts are seen in the anterior aspect of the lower pole of the left kidney. The largest cyst measures 4.5 cm. Normal visualized stomach. Normal small intestine. There is evidence of circumferential mass in the midportion of the transverse colon. A neoplastic process should be ruled out. Moderate amount of fecal material is seen in the proximal portion of the right hemicolon. There are multiple colonic diverticula consistent with diverticulosis. There are surgical clips in the region of the appendix consistent with a prior appendectomy. Normal abdominal aorta. Normal inferior vena cava. Normal retroperitoneum. Normal urinary bladder. Normal abdominal wall. There are diffuse degenerative changes of the visualized lumbar spine. CT/Abdomen/Pelvis WITH Contrast IMPRESSION: Partial resection of the proximal ascending colon. Findings suggestive of circumferential wall thickening of the proximal portion of the transverse colon with the large amount of fecal material proximal to this site. Clinical correlation recommended. Findings suggestive of cystic changes in the liver as described although correlation with ultrasound recommended for further evaluation. Sigmoid diverticulosis. Electronically Signed: James Mendoza MD at 12:08 EDT ,
[2024-07-08 08:40] VITALS: BP 121/72; PULSE 81; RESP 16; TEMP 36.7; O2SAT 98
[2024-07-08] MEDS: Contrast Allergy Safety Check IV (08:45)
[2024-07-08] MEDS: Pantoprazole Sodium 40 MG in 0.9% Normal Saline (100mL MB+) 100 ML 330 MG IV (08:45)
--- NOTE | 2024-07-08 09:11 | PCM.PN.SRG ---
Subjective Subjective Patient evaluated resting comfortably in bed this morning. She denies any abdominal pain. She has been having bowel movements. She denies any new concerns this morning. Objective Data Objective Data Vital Signs: Vital Signs Temp Pulse Resp BP Pulse Ox O2 Del Method 98.0 F 81 16 121/72 H 98 Room Air 07/08/24 08:40 07/08/24 08:40 07/08/24 08:40 07/08/24 08:40 07/08/24 08:40 07/08/24 08:40 Oxygen Delivery Method Room Air Weight: 145 lb 8.081 oz Body Mass Index (BMI) 25.0 Intake & Output: Intake and Output for Last 24 Hours 07/06/24 07/07/24 07/08/24 23:59 23:59 23:59 Intake Total 1220 / 1470 1047 / 1297 360 / 360 Balance 1220 / 1470 1047 / 1297 360 / 360 Lab / Micro Data 07/08/24 06:50 07/08/24 06:50 Labs: Laboratory Results - last 24 hr 07/06/24 19:38: Carcinoembryonic Ag 2.3 07/07/24 05:57: Sodium 142, Potassium 3.7, Chloride 109 H, Carbon Dioxide 24.0, Anion Gap 9, BUN 7, Creatinine 0.83, Estim Creat Clear Calc 47.17, Est GFR (MDRD) Af Amer 85, Est GFR (MDRD) Non-Af 70, BUN/Creatinine Ratio 8.5 L, Glucose 92, Calcium 9.2 07/07/24 15:14: Blood Type O NEGATIVE, Antibody Screen NEGATIVE, Crossmatch See Detail 07/08/24 06:50: WBC 5.4, RBC 4.38, Hgb 10.6 L, Hct 34.5 L, MCV 78.8 L, MCH 24.2 L, MCHC 30.7 L, RDW Std Deviation 53.4 H, RDW Coeff of David 19.0 H, Plt Count 283, MPV 9.8, Immature Gran % (Auto) 0.400, Neut % (Auto) 63.5, Lymph % (Auto) 22.4, [place] % (Auto) 9.6, Eos % (Auto) 2.8, Baso % (Auto) 1.3 H, Absolute Neuts (auto) 3.4, Absolute Lymphs (auto) 1.21, Nucleated RBC % 0, Sodium 142, Potassium 3.7, Chloride 112 H, Carbon Dioxide 25.0, Anion Gap 5, BUN 11, Creatinine 0.85, Estim Creat Clear Calc 46.06, Est GFR (MDRD) Af Amer 82, Est GFR (MDRD) Non-Af 68, BUN/Creatinine Ratio 12.9, Glucose 98, Calcium 9.0 Micro: Microbiology 07/03/24 21:30 Urine, Clean Catch Urine Culture - Final Klebsiella pneumoniae sp pneum Physical Exam GI GI Narrative: Abdomen- soft, nontender, positive bowel sounds Assessment & Plan Assessment/Plan (1) Colonic mass: PLAN: I am following this patient in conjunction with Dr. Augustine. She will independently evaluate this patient. Labs reviewed. Hgb is 10.6 today after receiving 2 units of PRBC yesterday Obtain CT scan of ab/pel with IV and oral contrast today Patient is scheduled for a follow-up with Dr. Augustine as an outpatient for next 07/15/24 at 9:10 AM to further discuss surgery. Patient's daughter and sister have been notified about this appointment as patient's daughter (POA) wishes not to share this information with the patient due to her dementia. Patient may be discharged today from a surgical standpoint Charges/Coding Visit Charges Inpatient E&M: 75732 Subs Hosp L1
--- NOTE | 2024-07-08 12:05 | PCM.DC ---
Discharge Instructions Diet Discharge Diet: No restrictions Activity Discharge Activity: Return to Normal Activity Dressing / Incision Call your doctor if you observe: Fever of 101 or Higher, Shortness of breath, Dizziness, Fainting spells, Swelling in the ankles, Chest pain and Increased palpitations (irregular heartbeat) Follow Up Care Test Results: Test results from this visit will be discussed in further detail at your follow-up appointment, if applicable. Discharge Plan Admission Admit Date/Time: 07/05/24 12:35 Attending Provider: Nicholas Maki Primary Care Provider: Rachna Swenson Consulting Providers: Artur Dominique; Ezio Menjivar Discharge Orders/Prescriptions Prescriptions: New pantoprazole [Protonix] 40 mg tablet,delayed release (DR/EC) 40 mg PO DAILY Qty: 30 0RF Referrals / Follow Up: Beatriz Augustine MD [Med Staff - Active Staff] - Within 2 Weeks Rachna Swenson, PERIPHERAL EDP EQUIPMENT OPERATOR-C [Primary Care Provider] - Within 1 Week Disposition Disposition (needs filled in before D/C Order can be placed): Home, Self Care
--- NOTE | 2024-07-08 12:19 | CASEMGMT ---
Discharge Planning Discharge and post-op instructions faxed to [place] with note that patient will return today. Luanne Campoverde DC Planning Asst.
--- NOTE | 2024-07-08 13:26 | CASEMGMT ---
Patient is ready for discharge back to [place]. However, when RN spoke with patient's family they stated they are in the process of moving patient to [facility]. RN asked patient's daughter if she spoke with case management about this and patient's daughter said she did not. TOD called [place] and spoke with Alix, the hospice social worker, and she is aware of patient. Alix said she is aware of patient and the plan is for her to move into their assisted living on SaturdayJul 12. TOD thanked Alix. TOD then called patient's daughter Gretta and left her a voice mail requesting a return call regarding d/c plan. Marily Saucedo ACTION INSTALLER SAL
[2024-07-08 14:33] VITALS: BP 108/67; PULSE 69; RESP 14; TEMP 36.5; O2SAT 97
--- NOTE | 2024-07-08 15:20 | CASEMGMT ---
TOD spoke with patient's daughter Gretta. Gretta said patient is going home with her for the weekend until she can move in on Saturday. TOD thanked Gretta for following up with social work. SW let her know patient is ready to go. Gretta said she will be at [facility] in about a 1/2 hour. Marily HUANG
--- NOTE | 2024-07-08 18:29 | PCM.DC.SUM ---
Providers Date of Admission: 07/05/24 Primary Care Physician: Rachna Swenson Rufino, HEALTH EDUCATION AIDE-C Consultations 07/03/24 20:35 Consult: Gastroenterology Routine Consulting Provider: Sur[facility] G[facility] Reason for Consult: GI bleed. Stool for occult blood positive EMERGENT Consult: No MD Notified: Yes Date Notified: 07/03/24 Time Notified: 19:39 Method of Notification: Verbal Reason For Visit: GI BLEED, ACUTE ON CHRONIC ANEMIA Diagnosis Discharge Diagnosis (1) Colonic mass: Status: Acute Code(s): K63.89 - Other specified diseases of intestine Medications at Discharge Home Medications pantoprazole 40 mg tablet,delayed release (Protonix) 40 mg PO DAILY #30 tabs 07/08/24 Hospital Course Operations None Procedures Colonoscopy and EGD Summary of Care Provided Minutes Spent on Discharge: 37 Hospital Course: Per HPI: JAMIE ROLLE, is a 83 F with history of dementia improved on memory unit for last 3 years was sent to ED by PCP. Prior to that patient has noticed very tired and saw PCP who found severe anemia her hemoglobin 7.6. Stool for occult blood was done which came out positive. Patient was sent to ED for further evaluation. Patient is not taking NSAID, antiplatelet agent or anticoagulant agent. No fever or chills. As per the daughter, she did not notice any dyspnea on exertion when she walks 4-5 labs daily. No dizziness or vertigo. Past medical history: About 30 years ago she had a small fall volvulus and a small segment of small bowel was resected. 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 This history was given by patient's daughter. Hospital Course: 1. Acute symptomatic anemia from a GI bleed?83-year-old female presented to the hospital due to anemia with a hemoglobin of 7.6. She had an EGD which showed erythematous duodenopathy but no obvious signs of bleeding so she was prepped for colonoscopy which showed a transverse colon mass. She did receive 2 units of blood yesterday and for a total of 3 units during this admission. Hemoglobin on the day of discharge was 10.6. A repeat CT scan of her abdomen pelvis with p.o. and IV contrast was obtained at the recommendation of surgery for operative planning. Surgery will be done as an outpatient instead of this stay. The specific diagnosis was not discussed with the patient because of her dementia and the concerns by family however family is aware. They do understand the risks and benefits of taking her home and are okay with going home today. Will continue with Protonix 40 mg daily because of her duodenopathy. She will follow-up with her PCP in 3 to 5 days and with surgery within the next 2 weeks while awaiting pathology results. Physical Exam Narrative General: Alert, Oriented x3, Cooperative, No apparent distress HEENT: Atraumatic, PERRLA, EOMI, Normocephalic, hard of hearing Oral: Moist Mucosa Neck: Supple, No JVD Lungs: Diminished, Normal air movement, No rhonchi, No wheeze, No rales Cardiovascular: Regular rate, Regular Rhythm, Normal S1, Normal S2, No murmurs Abdomen: Soft, Non Tender, Non-Distended, No Hepato-splenomegaly Extremities: No edema, Capillary Refill Less than 3 Seconds Skin: No rashes, No breakdown Musculoskeletal: No Tenderness to Palpation of Joints or Extremities Neurological: No focal neurological deficits, Motor Exam 5/5 strength throughout, Sensory exam intact to light touch and pain Psych/Mental Status: Normal Affect, Appropriate Weight / BMI Weight Weight: 145 lb 8.081 oz Body Mass Index (BMI) 25.0 ABG / Lab / Microbiology Data 07/08/24 06:50 07/08/24 06:50 Laboratory: Laboratory Results - last 24 hr 07/06/24 19:38: Carcinoembryonic Ag 2.3 07/07/24 15:14: Blood Type O NEGATIVE, Antibody Screen NEGATIVE, Crossmatch See Detail 07/08/24 06:50: WBC 5.4, RBC 4.38, Hgb 10.6 L, Hct 34.5 L, MCV 78.8 L, MCH 24.2 L, MCHC 30.7 L, RDW Std Deviation 53.4 H, RDW Coeff of David 19.0 H, Plt Count 283, MPV 9.8, Immature Gran % (Auto) 0.400, Neut % (Auto) 63.5, Lymph % (Auto) 22.4, Sargent % (Auto) 9.6, Eos % (Auto) 2.8, Baso % (Auto) 1.3 H, Absolute Neuts (auto) 3.4, Absolute Lymphs (auto) 1.21, Nucleated RBC % 0, Sodium 142, Potassium 3.7, Chloride 112 H, Carbon Dioxide 25.0, Anion Gap 5, BUN 11, Creatinine 0.85, Estim Creat Clear Calc 46.06, Est GFR (MDRD) Af Amer 82, Est GFR (MDRD) Non-Af 68, BUN/Creatinine Ratio 12.9, Glucose 98, Calcium 9.0 Microbiology: Microbiology 07/03/24 21:30 Urine, Clean Catch Urine Culture - Final Klebsiella pneumoniae sp pneum Radiography Diagnostic Testing: Radiology Impression Abdomen/Pelvis CT 07/08/24 08:25 IMPRESSION: Partial resection of the proximal ascending colon. Findings suggestive of circumferential wall thickening of the proximal portion of the transverse colon with the large amount of fecal material proximal to this site. Clinical correlation recommended. Findings suggestive of cystic changes in the liver as described although correlation with ultrasound recommended for further evaluation. Sigmoid diverticulosis. Electronically Signed: James Mendoza MD at 12:08 EDT , D/C Instructions Discharge Diet: No restrictions Call your doctor if you observe: Fever of 101 or Higher, Shortness of breath, Dizziness, Fainting spells, Swelling in the ankles, Chest pain and Increased palpitations (irregular heartbeat) Meaningful Use Info Meaningful Use Meaningful Use Diagnoses (Choose all that apply): None applicable Ischemic Stroke Statin Dosing Therapy Reference: STATIN DOSE THERAPY REFERENCE: * Patients > 75 years receive moderate or high dose statin therapy. * Patients 75 years or YOUNGER should receive HIGH intensity statin dose unless contraindicated. You will be required to document reason for non-treatment if statin daily dose does not meet guidelines. HIGH DOSE STATIN THERAPY DAILY Atorvastatin > than or = to 40 mg Rosuvastatin > than or = to 20 mg Amlodipine + Atorvastatin > than or = to 2.5/40 mg Ezetimibe + Simvastatin 10/80 mg Simvastatin 80mg Discharge Plan Admission Admit Date/Time: 07/05/24 12:35 Attending Provider: Nicholas Maki Primary Care Provider: Rachna Swenson Rufino Consulting Providers: Artur Dominique; Ezio Menjivar Discharge Orders/Prescriptions Prescriptions: New pantoprazole [Protonix] 40 mg tablet,delayed release (DR/EC) 40 mg PO DAILY Qty: 30 0RF Referrals / Follow Up: Beatriz Augustine MD [Med Staff - Active Staff] - Within 2 Weeks Rachna Swenson, HEALTH EDUCATION AIDE-C [Primary Care Provider] - Within 1 Week Disposition Disposition (needs filled in before D/C Order can be placed): Home, Self Care Charges/Coding Visit Charges Inpatient E&M: 88980 Disch Hosp >30min
== END 2024-07-08 16:03 | disposition home or self-care (01) | DRG 374 ==
LOC: ED 18:43 → PCU 21:40
PROVIDERS: Internal Medicine; Internal Medicine Gastroenterology; Admitting Provider Internal Medicine; Emergency Provider Emergency Medicine; PCP Nurse Practitioner Family; Visit Provider Family Medicine
PROC: 0DJ08ZZ Inspection of Upper Intestinal Tract, Via Natural or Artificial Opening Endoscopic (ICD-10-PCS; CPT 43235; principal; 2024-07-04 15:15)
PROC: 0DJD8ZZ Inspection of Lower Intestinal Tract, Via Natural or Artificial Opening Endoscopic (ICD-10-PCS; CPT 45378; principal; 2024-07-06 16:25)
DX: C18.4 Malignant neoplasm of transverse colon (principal); K57.31 Diverticulosis of large intestine without perforation or abscess with bleeding; D62 Acute posthemorrhagic anemia; F03.C0 Unspecified dementia, severe, without behavioral disturbance, psychotic disturbance, mood disturbance, and anxiety; K31.89 Other diseases of stomach and duodenum; R35.0 Frequency of micturition; R39.15 Urgency of urination; Z86.018 Personal history of other benign neoplasm; Z87.19 Personal history of other diseases of the digestive system; Z87.891 Personal history of nicotine dependence
CPT/HCPCS: 36415; 71260; 74177; 80048; 80053; 81001; 81002; 82274; 82378; 83690; 83735; 84100; 84484; 85014; 85018; 85025; 85610; 86850; 86900; 86901; 86920; 86922; 87077; 87086; 87088; 87186; 88305; 88341; 88342; 93005; 94668; 99252; 99283; J7030; J7040; J7120; P9016; Q9967; A4216; A4648; G0463

== ENCOUNTER → 2024-07-14 | Outpatient (CLI) | payer MEDICARE, SELFPAY ==
[2024-07-14 13:53] LABS: Hematocrit 35.9 % (37-47); Hemoglobin 10.6 g/dL (12.0-15.0)
== END | disposition home or self-care (01) ==
LOC: LAB 12:22
PROVIDERS: PCP Nurse Practitioner Family; Referring Provider Nurse Practitioner Family; Visit Provider Nurse Practitioner Family
DX: D64.9 Anemia, unspecified (principal)
CPT/HCPCS: 36415; 85014; 85018

== ENCOUNTER 2024-07-24 11:14 | Inpatient (IN) | payer MEDICARE, SELFPAY ==
[2024-07-23 11:50] VITALS: BP 109/60; BP 109/72; PULSE 54; RESP 14; O2SAT 97
[2024-07-24] VITALS (14 sets, daily range): BP systolic 92–114; BP diastolic 61–73; PULSE 53–98; RESP 14–18; TEMP 35.9–36.8; O2SAT 88–97; BMI 24.6
[2024-07-24 06:30] LABS: Bedside Glucose 100 mg/dL (74-106)
[2024-07-24 06:31] LABS: Magnesium 2.1 mg/dL (1.6-2.6)
[2024-07-24] MEDS: Gabapentin 600 MG Tablet PO (06:36)
[2024-07-24] MEDS: Acetaminophen 500 MG Tablet 1000 MG PO ×3 (06:36→17:30)
[2024-07-24] MEDS: Lactated Ringers 1,000 ML 40 ML IV ×2 (06:36→13:28)
--- NOTE | 2024-07-24 06:37 | PCM.PRE.AN2 ---
ASA Classification* ASA Classification ASA Classification: 2 Assessment & Plan Anesthesia* Anesthesia Assessment Anesthesia Assessment: Discussed sedation and/or anesthesia options, risks, benefits, and alternatives with patient/parents/legal guardian/POA. Questions invited. The patient/parents/legal guardian/POA seems to understand and agrees to proceed with anesthesia plan. Reviewed the physical assessment, medical history, allergy history and patient home medications list prior to surgery/procedure/anesthetic and documented any changes. Performed airway and anesthesia risk assessments. Anesthesia Type Anesthesia Type: General Anesthesia Focused Assessment* Temperature: 98.2 F Pulse Rate: 78 Blood Pressure: 109/72 Respiratory Rate: 16 Pulse Ox: 94 Airway Assessment Mouth opens: >3 cm Mallampati Score: II Focused Labs Anesthesia Preop lab: CBC WBC 5.4 K/mm3 (4.4-11.0) 07/08/24 06:50 RBC 4.38 M/mm3 (4.2-5.4) 07/08/24 06:50 Hgb 10.6 g/dL (12.0-15.0) L 07/14/24 12:32 Hct 35.9 % (37-47) L 07/14/24 12:32 Plt Count 283 K/mm3 (150-450) 07/08/24 06:50 CHEMISTRY Potassium 3.7 mmol/L (3.5-5.1) 07/08/24 06:50 Sodium 142 mmol/L (136-145) 07/08/24 06:50 Magnesium 2.1 mg/dL (1.6-2.6) 07/24/24 06:10 Phosphorus 3.5 mg/dL (2.5-4.9) 07/05/24 05:48 BUN 11 mg/dL (7-18) 07/08/24 06:50 Creatinine 0.85 mg/dL (0.55-1.02) 07/08/24 06:50 Glucose 98 mg/dL (74-106) 07/08/24 06:50 POC Glucose 100 mg/dL (74-106) 07/24/24 06:04 TSH 1.880 uIU/mL (0.358-3.740) 06/30/24 14:23 COAG PT 13.4 SECONDS (11.7-14.9) 07/03/24 20:59 Pre-Assessment Diagnosis/Proposed Procedure Planned Operative Procedure(s): LAPAROSCOPIC PALLIATIVE COLECTOMY POSSIBLE OPEN, ERAS Anesthesia History Anesthesia History - rx specialist: Anesthesia History - rx specialist Hx Hospitalization Yes: 07/03 [facility] 07/23/24 11:10 Any Problems With Anesthesia No 07/23/24 11:10 Cholinesterase deficiency No 07/23/24 11:10 You/Your Family Experience No 07/23/24 11:10 fever (hyperthermia) with Relationship Recent Exposure to Contagious No 07/24/24 06:25 Disease Does patient have nerve No 07/23/24 11:10 stimulator Patient instructed to have device shut off --Does patient have Pacemaker No 07/24/24 06:25 or ICD? When Was Last Pacemaker Check QUESTION #4 FULL TEXT: You/Your Family Experience fever (hyperthermia) with Anesthesia Last Oral Intake Last Oral intake: Last Oral Intake NPO since 21:00 07/24/24 06:25 Meds taken in AM with sips of No 07/24/24 06:25 water? Meds patient instructed to take am of surgery PONV PONV - rx specialist: PONV - rx specialist Female Yes 07/23/24 11:10 HX of Motion Sickness No 07/23/24 11:10 HX of N/V After Surgery No 07/23/24 11:10 Non-Smoker Yes 07/23/24 11:10 Duration of Surgery greater Yes 07/23/24 11:10 than 60 minutes Number of Risk Factors 3 07/23/24 11:10 PONV Score Moderate Risk 07/23/24 11:10 Height & Weight Height & Weight: Anesthesia: Height & Weight Height 5 ft 4 in 07/24/24 06:25 Weight: 65.2 kg 07/24/24 06:25 Body Mass Index (BMI) 24.6 07/24/24 06:25 Respiratory Assessment Respiratory Assessment - rx specialist: Respiratory Tract Infection Hx - rx specialist Hx Respiratory Tract Infection No 07/23/24 11:10 STOP Sleep Apnea STOP Sleep Apnea - rx specialist: STOP Sleep Apnea - rx specialist Hx Hypertension No 07/23/24 11:10 Hx Sleep Apnea No 07/23/24 11:10 CPAP BIPAP Do you snore loudly (louder No 07/23/24 11:10 than talking or can be heard Do you often feel tired/ No 07/23/24 11:10 fatigued/ sleepy during daytime? Has anyone observed you stop No 07/23/24 11:10 breathing during sleep? STOP Results Negative 07/23/24 11:10 QUESTION #5 FULL TEXT : Do you snore loudly (louder than talking or can be heard through closed doors)? Tobacco Use History Tobacco Use History - rx specialist: Tobacco Use History - rx specialist Tobacco Use Smoking Status Former smoker 07/23/24 11:10 Hx Tobacco Use No 07/23/24 11:10 Years Smoking Packs Smoked per Day Smoking Cessation Date was No - quit smoking greater 07/23/24 11:10 within the last 15 years than 15 years ago Hx Smoking Cessation Date Hx Smoking Cessation Counseling Hematologic Medial History Hematologic Hx - rx specialist: Hematologic Medical Hx - systems mgr Hx of Blood Transfusion Yes 07/23/24 11:10 Hx of Transfusion in last 3 No 07/23/24 11:10 Months Date of Last Transfusion (if within last 3 months) Ever experience any problems No 07/23/24 11:10 with transfusion(s)? Specify any problems Hx of Preganancy in last 3 No 07/23/24 11:10 Months Nurse Filling Out Transfusion [email or web address] 07/23/24 11:10 & Questions: Date: 07/23/24 07/23/24 11:10 Time: 11:13 07/23/24 11:10 Patient unable to answer at this time (ie. confused, unrespo /Reproduction History /Reproductive History - rx specialist: /Reproductive Hx- rx specialist Hx Now Gestational Age (in weeks): EDC: Hx Hx Para Hx Section SAB No 07/06/24 04:48 Active Medications Active Medications: Current Medications Generic Name Dose Route Start Last Admin Trade Name Freq PRN Reason Stop Dose Admin Acetaminophen 1,000 mg 07/24/24 07:30 Acetaminophen 500 Mg Tablet PO 07/24/24 07:31 PREOP ONE Gabapentin 600 mg 07/24/24 07:30 Gabapentin 600 Mg Tablet PO 07/24/24 07:31 PREOP ONE Cefotetan Disodium 2 gm/ 100 mls @ 200 mls/hr 07/24/24 07:30 Sodium Chloride IV 07/24/24 07:59 PREOP ONE Lactated Ringer's 1,000 mls @ 40 mls/hr 07/24/24 07:30 IV .Q25H COURTNEY Magnesium Sulfate 1 gm/ 102 mls @ 408 mls/hr 07/24/24 07:30 Dextrose IV 07/24/24 07:44 X1 ONE Insulin Human Lispro 0 unit 07/24/24 07:30 Insulin Lispro 100 Unit/Ml Insuln.Pen SC 07/24/24 18:00 Q4H PRN PRN BG >/= 180, SEE PROTOCOL Protocol PFSH Medical History Vitamin D deficiency Dementia Home Medications ?Medication ?Instructions ?Recorded ?Last Taken ?Type pantoprazole 40 mg tablet,delayed 40 mg PO DAILY GI #30 tabs 07/08/24 07/23/24 Rx release (Protonix) metronidazole 500 mg tablet 500 mg PO .COMPLEX SURGERY #6 tabs 07/16/24 07/23/24 Rx neomycin 500 mg tablet 500 mg PO .COMPLEX pre-op 07/16/24 07/23/24 Rx antibiotics #6 tabs Allergy/AdvReac Type Severity Reaction Status Date / Time No Known Allergies Allergy Verified 07/24/24 06:23 Family History Grandmother Diabetes Grandfather Colon cancer Surgical History Hx of appendectomy Hx of esophagogastroduodenoscopy S/P tonsillectomy Status post small bowel resection Social History Smoking Status: Former smoker Review of Systems (Anesthesia) ROS Narrative System reviewed and no additional complaints, except as documented.
[2024-07-24] MEDS: Magnesium 1 GM over 15 mins IV (06:43)
--- NOTE | 2024-07-24 07:09 | PCM.HP.BLA ---
History and Physical Date of Admission: 07/24/24 Date of Service: 07/15/24 MR#: [id number] Acct: [id number] Name: JAMIE ROLLE Rep #: [id number] : 1940 Provider: Dr. Beatriz Augustine MD Age/Sex: 83/F Location: [facility] Status: Signed Intake Vital Signs 07/06/2414:27 07/15/2409:47 Height 5 ft 4 in 5 ft 4 in Weight: 148 lb 6 oz BMI 25.4 BP 116/79 Blood Pressure Location Rt brachial Position Sitting Respiration 17 Pulse 69 Pulse Source Monitor Temp 97.4 F L Temp Source Temporal Pulse Oximetry (%) 96 Oxygen Delivery Method room air Intake Visit Reasons: Discuss colon mass Chief Complaint: colon mass Is patient in pain?: No Allergies No Known Allergies Allergy (Verified 07/15/24 09:48) Medications ?Medication ?Instructions ?Recorded ?Confirmed ?Type pantoprazole 40 mg tablet,delayed 40 mg PO DAILY #30 tabs 07/08/24 07/15/24 Rx release (Protonix) Have you fallen in the past year?: No PFSH Medical History Dementia Surgical History Hx of esophagogastroduodenoscopy S/P tonsillectomy Status post small bowel resection Family History (Updated 07/15/24 @ 09:45 by Poly Longo) Grandmother DiabetesGrandfather Colon cancer Social History Smoking Status: Former smoker HPI HPI HPI: 83-year-old female presents with her sister and daughter to discuss surgery for colon cancer proven on biopsy. Patient is currently living at the [facility], just moved from [place]. Patient was recently hospitalized with anemia underwent EGD and colonoscopy was found to have colon cancer transverse colon per GI. Patient does have a past medical history for dementia otherwise relatively healthy. Patient's daughter is POA. Patient's daughter and patient's sister request not telling the patient about proven cancer or discussing bleeding as patient does have high anxiety along with her dementia. Patient does have past medical history of sounds like 2 bowel surgeries 1 may have been a cecal volvulus and another involving the small bowel as it peers on CT abdomen pelvis that it is difficult to make out of the cecum but her colon is tortuous in the right upper quadrant. Patient CT abdomen pelvis did show a couple of lesions on the liver cannot rule out malignancy however patient is unable to undergo biopsy or MRI as she would move. Patient's daughter and sister are interested in palliative surgery for this colon mass as it is likely her source of anemia. Patient did not receive total of 3 units packed red blood cells when she was in the hospital went from 7-10.6. Patient's family states that the most recent check was also 10.6. ROS General General: Yes fatigue; No weight change, appetite, colon cancer or breast cancer HEENT HEENT: Yes eye surgery; No difficulty swallowing, eye injury, swollen glands or hoarseness Endo Endocrine: No thyroid disease, diabetes mellitus, thyroid cancer, Hair loss, heat intolerance or cold intolerance Skin Skin: No rash or changing moles Musc Musculoskeletal: No back problems, arthritis, rheumatoid arthritis, gout or joint pain Cardio Cardiovascular: No murmur, pacemaker, heart disease, atrial fibrillation, high blood pressure, heart attack, heart stent, palpitations, shortness of breat with exertion or chest pain Psych Psychiatric: No depression, anxiety or hearing voices Resp Respiratory: No shortness of breath, No sleep apnea, No cough, No COPD, No asthma, No emphysema and No wheezing Gastro Gastrointestinal: No abdominal pain, No nausea or vomiting, No diarrhea, Yes constipation, No blood in stool, No acid reflux, No hemorrhoids, No ulcers, No gallbladder problem and No black,tarry stools Bird Hematologic: No blood thinners, No blood disorders, No bleeding, No anemia and No blood clots Neuro Neurologic: No numbness and No tingling Exam Const General: cooperative, healthy appearing, comfortable and no acute distress [facility] Head: normocephalic and atraumatic Neck Neck: supple Resp Effort & Inspection: normal respiratory effort Cardio Rate: regular rate GI Inspection: non-distended Palpation: soft and nontender Other: Lower midline incision well-healed Skin General: no rashes or lesions noted Neuro General: CN's II-XI intact bilaterally Extrem General: normal to inspection Psych Mental Status: mental status grossly normal Attitude: cooperative Assessment and Plan Assessment and Plan (1) Colon cancer: Status: Acute Comment: Possible liver mets Plan Did have a discussion with patient's daughter and sister. They would prefer palliative surgery to control the anemia but would not want a colostomy under any circumstance. Did discuss with the family that if there were to be a complication from the surgery i.e. leak etc. she would require a colostomy at that time if no initially would plan to do a primary anastomosis. Did also mention patient could get blood transfusions for the anemia when needed however I also could not guarantee that this mass would not obstruct the colon in the future as patient has relatively little other health issues other than the dementia, which has gotten worse in the last 6 months. I also discussed with the family that patient's age/dementia it can affect her postop status as well. Also discussed that unsure exactly where the tumor is located said it is in the transverse will have to find the tattooed olvin to know for sure. The CT looks like could be possibly proximal transverse. Patient's family plans to discuss and get back to us tomorrow on their consensus plan. Discussed the procedure laparoscopic ERAS palliative colectomy, possible open with the patient and patient's family. Including risks, but not limited to, bleeding, infection (superficial or intraabdominal), injury to another organ (small bowel, colon, ureter, etc.) requiring additional procedures, and blood clots. Also, discussed the pre-op, colon prep and antibiotics. All questions were answered. Beatriz Augustine M.D. Pager: [phone] [facility] [address] [place] [address], [address] [place] [address] Office: [phone] Coding Level of Care Code Off vis,est,level 4 Diagnoses Colon cancer C18.9 Clinical Quality Measures Falls Risk Screening/Assistive Devices Have you fallen in the past year?: No 07/16/24 0912 <Electronically signed by Beatriz Augustine MD> Date Beatriz Augustine MD
[2024-07-24] MEDS: Cefotetan 2 GM in 0.9% Normal Saline (100mL MB+) 100 ML IV (07:30)
--- NOTE | 2024-07-24 07:30 | COL._PTH ---
PATIENT: JAMIE ROLLE LOC: MS3 U#:[id number] AGE/SX: 83/F ROOM: ND306 RE07/24/[address]: Dr. Beatriz Augustine MD : 1940 BED: 1 DIS: 07/27/2024 SPEC #: [id number] RECD: 07/24/24 11:52 STATUS: ALEXANDRO ARLENE #: [id number] JESSICA: 07/24/24 07:[address]: Beatriz Augustine DEPT: SURGICAL PATHOLOGY RECD BY: Don Collier ENTERED: 07/24/24 13:10 SP TYPE: COLON OTHR DR: Rachna Swenson, [facility], HEARING AID TECHNICIAN-C Tissues: Colon, NOS Procedures: Surgery Specimen Level HEADER OPERATION: Laparoscopic, palliative colectomy PRE-OP DIAGNOSIS: Colon cancer TISSUE SUBMITTED: Right colon, status post iliocectomy MICROSCOPIC DIAGNOSIS Right colon, palliative colectomy (s/p ileocecectomy): 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 See cancer summary in the comment section. 07/28/2024 COMMENT COLON CANCER SUMMARY: Specimen - right colon Procedure - Colectomy Tumor site - Proximal transverse colon, as per EMR Tumor size - 3.5 x 2.5 x 0.5cm Macroscopic tumor perforation - Not identified Histologic type - Adenocarcinoma Histologic grade - Grade 1 -2, well to moderately differentiated Microscopic tumor extension - Tumor invades through muscularis propria pericolonic adipose tissue Margins: All Margins are uninvolved by invasive carcinoma. Tumor is 7.0cm away from one axial margin. Treatment effect - No known presurgical therapy Lymphvascular invasion - Not identified Perineural invasion - Not identified Tumor deposits - Not identified Type of polyp in which invasive carcinoma arose - Not identied Lymph nodes: Number of lymph nodes examined - 17 Number of lymph nodes involved - 0 Distant metastasis - not applicable Additional pathologic findings - Tubular adenoma x1. Submucosal lipoma. Detached pieces of tissue, possible donut shaped piece of colonic and small intestinal tissue - no pathologic diagnosis. Anastamosis area - suture granuloma. Ancillary studies: [id number] See microsatellite instability study by IHC ([id number]) for complete details. Negative (no loss of mismatch protein; no microsatellite instability detected). PATHOLOGIC STAGE: pT3 pN0 pMx The above summary is in compliance with [employer] (CAP) Cancer Protocols Checklist and [place] Joint Committee on Cancer (AJCC), Staging Manual, 8th Ed. Please make reference to previous specimen [id number] transverse colon mass, biopsy with diagnosis of well to moderately differentiated invasive adenocarcinoma. Case has been reviewed in consultation with Dr. Mauro who concurs with the above diagnosis. IDC:AM MICROSCOPIC DESCRIPTION Slides are reviewed. GROSS DESCRIPTION Received in fixative is one container labeled with the patient's name and designated Right colon. The specimen consists of small intestine and large intestine with [id number] anastomosis. A segment of the small intestine measures 19.0cm in length and the segment of large intestine measures 25.0cm in length. An ulcerated tumor mass is noted 7.0cm from one colonic resection margin measuring 3.5 x 2.5 x 0.5cm. Lumen contains a small amount of fecal material. No additional mass lesions are identified. Serosal surface over the mass is inked black. Area of anastomosis is well healed. Pericolonic lymph node tissue is fixed in lymph node revealing solution. Also present in the container are four variable sizes of bowel tissue, possible donut pieces measuring in aggregate 3.5 x 2.0 x 0.8cm. One of the pieces shows multiple naomi. Sections will be submitted after additional fixation. BALTAZAR/ 07/24/2024 Two 2.0cm away from the distal to the mass a possible submucosal nodule is noted measuring 0.5cm in greatest dimension. Sections of the tumor mass reveal full thickness involvement of the bowel wall. Sections of pericolonic adipose tissue reveal multiple lymph nodes largest measuring 1.0cm in greatest dimension. Painter Mirror sections are submitted as follows: 1- detached pieces of tissue, possible donut pieces 2&3- sections of small intestine and colonic resection margins, 4- anastomosis area, 5- uninvolved portion of small intestine, 6- uninvolved portion of large intestine, 7- possible submucosal lipoma, 8-11- tumor, 12 to 17 lymph nodes (12 to 15 - each cassette containing one lymph node, 16 &17 - multiple lymph nodes). [email or web address] 07/27/2024 Pericolonic adipose tissue is dissected for the again for a second look for lymph nodes. Sections are submitted in two cassettes, 18 and 19 - Pericolonic adipose with possible lymph nodes. 07/29/2024 TC:0 CPT:[id number]
[2024-07-24] MEDS: BUPIVACAINE LIPOSOME/PF 20 ML VIAL OPERA.SITE (10:57)
[2024-07-24] MEDS: 0.9% Normal Saline (Pres. free 10 ML Vial (10:58)
[2024-07-24] MEDS: Bupivacaine 0.25% 30 ML Vial (10:58)
--- NOTE | 2024-07-24 11:13 | OP.PCM_ITS ---
Report of Operation Date of Procedure: 07/24/24 Pre-Operative Diagnosis: Transverse colon cancer Post-Operative Diagnosis: Same Surgery/Procedure Performed:: Laparoscopic converted to open palliative right hemicolectomy, extensive lysis of adhesions Description of Surgical Findings:: Patient had a previous ileocecectomy Surgeon: Beatriz Augustine chief operator synthesis: Carlos Vincent Type of Anesthesia: General/Supplemental Anesthesiologist: Bruno Bolden Special Medications: Cefotan 2 g IV x 1 Specimen's removed: Right hemicolectomy Drains: Salvador-100 cc Estimated Blood Loss (mL): 20 cc Description of Procedure: Synoptic Portion: Element Response Options Operation performed with curative intent. 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 CT chest abdomen pelvis did show possible liver lesion however due to the patient's past medical history of dementia no plans to biopsy the liver or any further treatment-chemo etc and family wanted palliative colectomy due to bleeding and to prevent possible obstruction in the future. Description procedure: The patient was placed on operating table in supine position. General Anesthesia was induced. Salvador catheter was placed. A timeout was completed verifying correct patient, procedure, site, position, social, and special equipment prior to beginning procedure. An orogastric tube was placed. The abdomen was prepped and draped in usual sterile fashion. An incision was made in the natural skin line above the umbilicus. The fascia was elevated and incised. The peritoneum was elevated and incised. Entry into the peritoneum was confirmed visually and no bowel was noted in the vicinity of the incision. Quinn trocar was placed. The abdomen was insufflated with carbon dioxide to a pressure of 12-15 mmHg. Patient tolerated insufflation well. The laparoscope was then inserted and abdomen inspected. No injuries from initial trocar placement were noted. Additional trochars were then inserted in the following locations two 5 mm trocars in the left lateral abdomen and one 5 mm trocar in the right lateral abdomen, additional 5 mm inferior midline. The abdomen was inspected there is noted to be adhesions to the midline and right upper quadrant, unable to see the liver lesions intraOp. These were carefully taken down with laparoscopic scissors and Enseal, total lysis of adhesion was greater than an hour during the case. The table is placed in Trendelenburg position with the right side up. Unable to see the tattooed area due to adhesion in the right upper quadrant. Then decided to convert to open due to the adhesions in the right upper quadrant. Midline incision was enlarged connecting the 2 previous trocars using 10 blade scalpel. This was deepened to the fascia with electrocautery. Wound protector was placed. Trocars were removed under direct visualization. After some lysis of adhesions able to identify the tattooed area of the colon which was the proximal transverse colon. Patient did appear to have a previous ileocecectomy. Patient's mid transverse colon was divided with the FARRAH 75 stapler as well as the ileum. Enseal was used to divide the mesentery to the ascending and transverse colon and distal ileum. This was sent to pathology. The 2 ends of the ileum and transverse colon were then aligned, ensuring that the mesentery was not twisted, and the staple [id number] anastomosis using the FARRAH 75 and TL 60. Staple line was oversewn with 3-0 silk. Once the wound protector was removed, gowns and gloves were changed. The midline incision was closed with 1-0 PDS suture at the fascia and then the skin was closed with 4-0 Monocryl suture. Dry sterile dressings were applied. The sponge and instrument count were correct. The patient was extubated. The patient tolerated procedure well and was taken to the postanesthesia care unit in stable condition. Complications none
--- NOTE | 2024-07-24 11:43 | PCM.POST.ANE ---
Anesthesia: Postop Eval I Current Vital Signs Temperature: 97.3 F Pulse Rate: 74 Blood Pressure: 92/73 Respiratory Rate: 16 Pulse Ox: 96 Oxygen Delivery Method: Nasal Cannula Oxygen Flow Rate (L/min): 4 Assessment Airway patent: Yes Spontaneous unlabored respirations: Yes Mental status: Awake and Calm nausea: No Vomiting: No Anesthesia Complication: No Fluid Hydration Crystalloid volume administer (ml): 1,900 Total IV fluid infused: 1,900 Progress Note Anesthesia document: Postop Eval 1 completed: Yes
--- NOTE | 2024-07-24 15:38 | POSTOPAN2_ITS ---
Anesthesia Postop Eval I Sum Postop Eval Completion status Anesthesia document: Postop Eval 1 completed: Yes Anesthesia Postop Eval I Summary Anesthesia Postop Eval I Summary: Anesthesia Postop Eval I: Assessment Summary Airway patent Yes 07/24/24 11:44 ATTENDING [email or web address].[email or web address] Spontaneous unlabored Yes 07/24/24 11:44 ATTENDING PATHOLOGIST.SCHR respirations Mental status Awake,Calm 07/24/24 11:44 ATTENDING PATHOLOGIST.SCHR nausea No 07/24/24 11:44 ATTENDING PATHOLOGIST.SCHR Vomiting No 07/24/24 11:44 ATTENDING PATHOLOGIST.[facility] Anesthesia Postop Eval I: Fluid Summary Crystalloid volume administer 1,900 07/24/24 11:44 ATTENDING PATHOLOGIST.SCHR (ml) Colloids volume administered ( ml) Blood Product volume administered (ml) Total IV fluid infused 1,900 07/24/24 11:44 ATTENDING PATHOLOGIST.[facility] Anesthesia Postop Eval I: Summary Notes Anesthesia Complication No 07/24/24 11:44 ATTENDING PATHOLOGIST.[facility] Anesthesia Complication Comment: Post-operative progress note Anesthesia: Postop Eval II Evaluation Mental status: Awake Pain Level: 0 nausea: No Vomiting: No
--- NOTE | 2024-07-24 15:38 | PCM.POSTANE2 ---
Anesthesia Postop Eval I Sum Postop Eval Completion status Anesthesia document: Postop Eval 1 completed: Yes Anesthesia Postop Eval I Summary Anesthesia Postop Eval I Summary: Anesthesia Postop Eval I: Assessment Summary Airway patent Yes 07/24/24 11:44 PREFABRICATED HOUSES [email or web address].[email or web address] Spontaneous unlabored Yes 07/24/24 11:44 PREFABRICATED HOUSES TRIMMER.SCHR respirations Mental status Awake,Calm 07/24/24 11:44 PREFABRICATED HOUSES TRIMMER.SCHR nausea No 07/24/24 11:44 PREFABRICATED HOUSES TRIMMER.SCHR Vomiting No 07/24/24 11:44 PREFABRICATED HOUSES TRIMMER.[facility] Anesthesia Postop Eval I: Fluid Summary Crystalloid volume administer 1,900 07/24/24 11:44 PREFABRICATED HOUSES TRIMMER.SCHR (ml) Colloids volume administered ( ml) Blood Product volume administered (ml) Total IV fluid infused 1,900 07/24/24 11:44 PREFABRICATED HOUSES TRIMMER.[facility] Anesthesia Postop Eval I: Summary Notes Anesthesia Complication No 07/24/24 11:44 PREFABRICATED HOUSES TR[employer]MER.[facility] Anesthesia Complication Comment: Post-operative progress note Anesthesia: Postop Eval II Evaluation Mental status: Awake Pain Level: 0 nausea: No Vomiting: No
[2024-07-24] MEDS: Docusate Sodium 100 MG Capsule PO (21:26)
[2024-07-25] VITALS (10 sets, daily range): BP systolic 100–122; BP diastolic 62–73; PULSE 67–105; RESP 17–20; TEMP 36.6–36.9; O2SAT 93–100
[2024-07-25 06:27] LABS: Hematocrit 31.3 % (37-47); Hemoglobin 9.2 g/dL (12.0-15.0); Mean Corp Hgb Conc 29.4 g/dL (32-36); Mean Corpuscular Hgb 24.3 pg (27.0-32.0); Mean Corpuscular Volume 82.6 fL (81-99); Mean Platelet Vol. 10.5 fl (6.2-12.0); POSITIVE MORPHOLOGY YES; Platelet Count 258 K/mm3 (150-450); RBC Distribution Width CV 20.6 % (11.6-14.6); RBC Distribution Width SD 62.1 fl (35.1-43.9); Red Blood Count 3.79 M/mm3 (4.2-5.4); White Blood Count 8.8 K/mm3 (4.4-11.0)
[2024-07-25 06:40] LABS: Scan Indicated on CBC? Y/N YES- FLAGS NOTED
[2024-07-25 06:52] LABS: Anion Gap 6 (5-15); BUN 10 mg/dL (7-18); BUN/Creat Ratio 12.9 RATIO (10-20); Calcium,Total 8.8 mg/dL (8.5-10.1); Chloride 109 mmol/L (98-107); Creatinine, Serum 0.77 mg/dL (0.55-1.02); EST Glomerular Filtration Rate 75 mL/min (>60); Est Glom Filt Rate - Afr Amer 91 mL/min (>60); Glucose 113 mg/dL (74-106); Potassium 4.1 mmol/L (3.5-5.1); Sodium Level 140 mmol/L (136-145)
[2024-07-25] MEDS: Acetaminophen 500 MG Tablet 1000 MG PO ×5 (07:04→23:51)
--- NOTE | 2024-07-25 07:24 | PCM.PN.SRG ---
Subjective Subjective Patient tolerating clears denies any nausea. Patient currently using the restroom. Objective Data Objective Data Vital Signs: Vital Signs Temp Pulse Resp BP Pulse Ox O2 Del Method O2 Flow Rate 98.2 F 87 18 122/73 H 96 Room Air 1 07/25/24 04:14 07/25/24 04:14 07/25/24 04:14 07/25/24 04:14 07/25/24 06:00 07/25/24 06:00 07/25/24 04:21 Oxygen Flow Rate (L/min) 1 Oxygen Delivery Method Room Air Weight: 143 lb 11.862 oz Body Mass Index (BMI) 24.6 Intake & Output: Intake and Output for Last 24 Hours 07/23/24 07/24/24 07/25/24 23:59 23:59 23:59 Intake Total 470 / 810 340 / 340 Output Total 330 / 980 1000 / 1000 Balance 140 / -170 -660 / -660 Lab / Micro Data 07/25/24 05:25 07/25/24 05:25 Labs: Laboratory Results - last 24 hr 07/25/24 05:25: WBC 8.8, RBC 3.79 L, Hgb 9.2 L, Hct 31.3 L, MCV 82.6, MCH 24.3 L, MCHC 29.4 L, RDW Std Deviation 62.1 H, RDW Coeff of David 20.6 H, Plt Count 258, MPV 10.5, Sodium 140, Potassium 4.1, Chloride 109 H, Carbon Dioxide 25.0, Anion Gap 6, BUN 10, Creatinine 0.77, Estim Creat Clear Calc 45.20, Est GFR (MDRD) Af Amer 91, Est GFR (MDRD) Non-Af 75, BUN/Creatinine Ratio 12.9, Glucose 113 H, Calcium 8.8 Physical Exam Const no apparent distress Resp normal respiratory effort Cardio regular rate GI soft to palpation GI Narrative: Tender near incisions clean dry and intact, no peritoneal signs Inspection: Negative for abdominal distention Assessment & Plan Assessment/Plan (1) S/P right hemicolectomy: (2) Colon cancer: PLAN: Plan Patient is postop day 1 from right hemicolectomy for right colon cancer. Hemoglobin is 9.2. Will continue to monitor. Patient is on clears will continue until increased bowel function. Encourage out of bed and ambulation. Beatriz Augustine M.D. Pager: [phone] [facility] [address] [place] [address], [address] [place] [address] Office: [phone]
[2024-07-25] MEDS: Docusate Sodium 100 MG Capsule PO ×2 (09:40→23:50)
[2024-07-25] MEDS: Enoxaparin 40 MG/0.4 ML Syringe SC (09:40)
[2024-07-25] MEDS: Ensure Plus High Protein 120 ML LIQUID PO (09:43)
[2024-07-25] MEDS: 0.9% Saline Lock 10 ML Syringe IV ×2 (11:20→23:50)
--- NOTE | 2024-07-25 12:58 | CASEMGMT ---
Addendum entered by Jess Williamson 07/25/24 13:29: Social Work Sujata from [facility] confirmed in [facility] the plan will be for pt to return to [facility] at discharge. MARILYN De Oliveira Original Note: Social Work SW spoke w/pt, pt hard of hearing and exhibiting forgetfulness, but did say wanted to return to where she was before here in the hospital. SW called daughter Gretta, confirmed the plan is for pt to return to [facility] at discharge, list of other facilities not needed. Pt has been there since Jul 12. Daughter states she will take pt back when ready. SW sent updates to [facility] via [facility], and placed a green sheet on the chart in the event pt can discharge on the weekend. MARILYN De Oliveira
[2024-07-25] MEDS: oxyCODONE 5 MG Tablet PO ×2 (14:37→23:51)
[2024-07-26] VITALS (7 sets, daily range): BP systolic 111–128; BP diastolic 66–88; PULSE 69–94; RESP 16–20; TEMP 36.4–37.1; O2SAT 92–95
[2024-07-26] MEDS: oxyCODONE 5 MG Tablet PO ×3 (05:12→19:47)
[2024-07-26] MEDS: Acetaminophen 500 MG Tablet 1000 MG PO ×4 (07:29→23:43)
[2024-07-26 08:02] LABS: Absolute Lymphocyte Count 0.87 X10^3/uL (0.83-4.51); Absolute Neutrophil Count 4.4 X10^3/uL (2.0-7.7); Basophil# 0.04 X10^3/uL; Basophil% 0.7 % (0-1); Eosinophil# 0.17 X10^3/uL; Eosinophils% 2.8 % (0-5); Hematocrit 31.4 % (37-47); Hemoglobin 9.3 g/dL (12.0-15.0); Lymphocyte # 0.87 X10^3/ul (0.83-4.51); Lymphocyte % 14.2 % (19-41); Mean Corp Hgb Conc 29.6 g/dL (32-36); Mean Corpuscular Hgb 24.7 pg (27.0-32.0); Mean Corpuscular Volume 83.3 fL (81-99); Mean Platelet Vol. 10.5 fl (6.2-12.0); Monocyte# 0.63 X10^3/uL; Monocyte% 10.3 % (0-10); NRBC Flagged by Analyzer 0 % (0-5); Neutrophil # 4.38 X10^3/uL (2.7-7.7); Neutrophil % 71.5 % (47-70); POSITIVE MORPHOLOGY YES; Platelet Count 259 K/mm3 (150-450); RBC Distribution Width CV 21.2 % (11.6-14.6); Red Blood Count 3.77 M/mm3 (4.2-5.4); White Blood Count 6.1 K/mm3 (4.4-11.0)
[2024-07-26 08:17] LABS: Differential Indicated SCAN CRITERIA MET
[2024-07-26 08:36] LABS: Anion Gap 2 (5-15); BUN 10 mg/dL (7-18); Calcium,Total 8.8 mg/dL (8.5-10.1); Chloride 110 mmol/L (98-107); Creatinine, Serum 0.63 mg/dL (0.55-1.02); EST Glomerular Filtration Rate 96 mL/min (>60); Est Glom Filt Rate - Afr Amer 116 mL/min (>60); Glucose 94 mg/dL (74-106); Potassium 3.6 mmol/L (3.5-5.1); Sodium Level 141 mmol/L (136-145)
--- NOTE | 2024-07-26 09:10 | PN.SURG_ITS ---
Subjective Subjective Patient tolerating transitional denies any nausea. +BM Objective Data Objective Data Vital Signs: Vital Signs Temp Pulse Resp BP Pulse Ox O2 Del Method O2 Flow Rate 97.5 F L 70 18 128/75 H 94 Room Air 1 07/26/24 05:11 07/26/24 05:11 07/26/24 05:07/26/24 05:11 07/26/24 05:11 07/26/24 05:07/25/24 04:21 Oxygen Flow Rate (L/min) 1 Oxygen Delivery Method Room Air Weight: 143 lb 11.862 oz Body Mass Index (BMI) 24.6 Intake & Output: Intake and Output for Last 24 Hours 07/24/24 07/25/24 07/26/24 23:59 23:59 23:59 Intake Total 470 / 810 940 / 940 Output Total 330 / 980 1000 / 1000 Balance 140 / -170 -60 / -60 Lab / Micro Data 07/26/24 07:55 07/26/24 07:55 Labs: Laboratory Results - last 24 hr 07/26/24 07:55: WBC 6.1, RBC 3.77 L, Hgb 9.3 L, Hct 31.4 L, MCV 83.3, MCH 24.7 L , MCHC 29.6 L, RDW Std Deviation 63.0 H, RDW Coeff of David 21.2 H, Plt Count 259, MPV 10.5, Immature Gran % (Auto) 0.500, Neut % (Auto) 71.5 H, Lymph % (Auto) 14.2 L, [place] % (Auto) 10.3 H, Eos % (Auto) 2.8, Baso % (Auto) 0.7, Absolute Neuts (auto) 4.4, Absolute Lymphs (auto) 0.87, Nucleated RBC % 0, Sodium 141, Potassium 3.6, Chloride 110 H, Carbon Dioxide 29.0, Anion Gap 2 L, BUN 10, Creatinine 0.63, Estim Creat Clear Calc 45.20, Est GFR (MDRD) Af Amer 116, Est GFR (MDRD) Non-Af 96, BUN/Creatinine Ratio 16.0, Glucose 94, Calcium 8.8 Physical Exam Const no apparent distress Resp normal respiratory effort Cardio regular rate GI soft to palpation GI Narrative: Tender near incisions clean dry and intact, no peritoneal signs Inspection: Negative for abdominal distention Assessment & Plan Assessment/Plan (1) S/P right hemicolectomy: (2) Colon cancer: PLAN: Plan Patient is postop day 2 from palliative right hemicolectomy for right colon cancer due to anemia Hemoglobin is 9.3. Patient is on transitional diet currently tolerating?continue to continues to do well tomorrow likely discharge to the [facility] Enc[facility] out of bed and ambulation. Lovenox for DVT prophylaxis Beatriz Augustine M.D. Pager: [phone] [facility] [address] [place] [address], [facility], [address] [place] [address] Office: [phone]
[2024-07-26 09:22] LABS: Anisocytosis 1+
[2024-07-26] MEDS: Docusate Sodium 100 MG Capsule PO ×2 (09:43→19:47)
[2024-07-26] MEDS: Enoxaparin 40 MG/0.4 ML Syringe SC (09:44)
[2024-07-26] MEDS: 0.9% Saline Lock 10 ML Syringe IV (19:52)
[2024-07-27 03:58] VITALS: BP 130/76; PULSE 96; RESP 18; TEMP 37; O2SAT 94
[2024-07-27] MEDS: oxyCODONE 5 MG Tablet PO ×2 (03:59→10:35)
--- NOTE | 2024-07-27 07:50 | PCM.PN.SRG ---
Subjective Subjective Patient is an 83 y/o F who is resting comfortably in bed. She denies any abdominal pain. She denies any nausea, vomiting. She is tolerating her transitional diet well. She is having loose stools. She is passing flatus. She urinating well. Objective Data Objective Data Vital Signs: Vital Signs Temp Pulse Resp BP Pulse Ox O2 Del Method O2 Flow Rate 98.6 F 96 18 130/76 H 94 Room Air 1 07/27/24 03:58 07/27/24 03:58 07/27/24 03:58 07/27/24 03:58 07/27/24 03:58 07/27/24 03:58 07/25/24 04:21 Oxygen Flow Rate (L/min) 1 Oxygen Delivery Method Room Air Weight: 143 lb 11.862 oz Body Mass Index (BMI) 24.6 Intake & Output: Intake and Output for Last 24 Hours 07/25/24 07/26/24 07/27/24 23:59 23:59 23:59 Intake Total 940 / 940 1050 / 1050 Output Total 1000 / 1000 Balance -60 / -60 1050 / 1050 Lab / Micro Data 07/26/24 07:55 07/26/24 07:55 Labs: Laboratory Results - last 24 hr 07/26/24 07:55: WBC 6.1, RBC 3.77 L, Hgb 9.3 L, Hct 31.4 L, MCV 83.3, MCH 24.7 L, MCHC 29.6 L, RDW Std Deviation 63.0 H, RDW Coeff of David 21.2 H, Plt Count 259, MPV 10.5, Immature Gran % (Auto) 0.500, Neut % (Auto) 71.5 H, Lymph % (Auto) 14.2 L, Delta % (Auto) 10.3 H, Eos % (Auto) 2.8, Baso % (Auto) 0.7, Absolute Neuts (auto) 4.4, Absolute Lymphs (auto) 0.87, Nucleated RBC % 0, Anisocytosis 1+, Sodium 141, Potassium 3.6, Chloride 110 H, Carbon Dioxide 29.0, Anion Gap 2 L, BUN 10, Creatinine 0.63, Estim Creat Clear Calc 45.20, Est GFR (MDRD) Af Amer 116, Est GFR (MDRD) Non-Af 96, BUN/Creatinine Ratio 16.0, Glucose 94, Calcium 8.8 Physical Exam GI GI Narrative: Abdomen- soft, slight distention, non-tender to palpation. All dressings were removed and patient tolerated will. Incisions c/d/i. No active oozing or drainage noted. Assessment & Plan Assessment/Plan (1) S/P right hemicolectomy: PLAN: I am following this patient in conjunction with Dr. Augustine. She will independently evaluate this patient. Patient continues to tolerate her transitional diet She is having bowel function and urinating well She is ready for discharge back to the [facility] pending from surgery Charges/Coding Visit Charges Inpatient E&M: 85024 Subs Hosp L1 (post-op; no charge)
[2024-07-27 08:13] VITALS: BP 116/81; PULSE 100; RESP 18; TEMP 36.7; O2SAT 93
[2024-07-27] MEDS: Acetaminophen 500 MG Tablet 1000 MG PO ×2 (08:16→13:13)
[2024-07-27] MEDS: Enoxaparin 40 MG/0.4 ML Syringe SC (08:16)
[2024-07-27] MEDS: Docusate Sodium 100 MG Capsule PO (08:16)
--- NOTE | 2024-07-27 09:12 | CASEMGMT ---
Social Work Update sent to [place]. FRANCISCO Zapata
--- NOTE | 2024-07-27 09:46 | PCM.TXEXTCAR ---
Diet Diet Order/Speech Therapy: 07/25/24 07:52 Diet: Transitional Type of Dietary Supplement:: Ensure Compact w/ meals Wound(s) ABD: Wound Type: Surgical Incision (Leave steri-strips on for 1 week and then may remove) midline: Wound Type: Surgical Incision (Leave steri-strips on for 1 week and then may remove) Therapies Physical Therapy: Eval and Treat Occupational Therapy: Eval and Treat Problem/Diagnosis (1) S/P right hemicolectomy: Status: Acute Code(s): Z90.49 - Acquired absence of other specified parts of digestive tract Plan: I am following this patient in conjunction with Dr. Augustine. She will independently evaluate this patient. Patient continues to tolerate her transitional diet She is having bowel function and urinating well She is ready for discharge back to the [facility] pending from surgery Patient to follow-up in [address] Augustine Allergies/Procedures Done in Hospital Allergies No Known Allergies Allergy (Verified 07/24/24 06:23) Type of Care/Length of Stay Estimated LOS: More Than 30 Days Type of Care Needed: Skilled Rehab Potential: Fair Prognosis: Fair Additional Orders/Day of Discharge Day of Discharge: 07/27/24 Dietary and Speech Recommendations Dietitian Recommendations/Changes: Recommend advance diet as tolerated from Transitional to Regular. Will d/c 120mL Ensure Plus BID w/ medpass and add Ensure Compact 3 times per day w/ meals. Additional ONS as needed. Follow Up Care Please Follow Up With: Beatriz Augustine MD When: Please contact our office for a 2 week follow-up at [phone], option #2 Discharge Plan Admission Admit Date/Time: 07/24/24 11:14 Primary Reason for Your Visit: Colon cancer Attending Provider: Beatriz Augustine Primary Care Provider: Rachna Swenson [facility] Additional Instructions / Restrictions: Colectomy Diet ? Start light with soups and soft bland foods. Refer to your transitional diet instruction sheet Activity ? You may drive in 5-7 days but not while taking narcotic pain medication. ? I encourage walking. You may go up steps, one at a time. ? Do not swim or use hot tubs for 2 weeks. Lifting ? You may lift up to 15 pounds for 2 weeks. Dressings/Incision ? Do NOT tub bathe for 1 week ? When plastic dressings are removed, you will find steri strips. It is okay to continue showering with them in place, pat them dry. ? You may remove steri-strips after 1 week. We recommend getting them soaking wet for easier removal. Medications ? Anesthesia used during surgery and pain medications may cause constipation. I recommend initiating on the day of surgery a fiber supplement like, Metamucil, Citrucel, FiberCon, Benefiber, or a generic form of these medications. 1 heaping tablespoon in water daily. You may continue to utilize any bowel regimen or oral laxatives that you routinely take. ? As long as you are not intolerant to Tylenol, acetaminophen, ibuprofen, Motrin, Advil, Aleve, or similar medications, I would recommend transitioning to these [id number] medicines as soon as possible instead of continued use of narcotic pain medication. Follow up ? You should call [facility] soon after surgery, at [phone] option 1 to make a follow up appointment for 2 weeks after your surgery. Transitional Diet for 2 weeks after surgery Beverages: ? Soda (cola, diet cola, lemon-[place], diet lemon-[place], delmy ronal, diet delmy ronal) ? Tea (hot or iced) ? Milk (low-fat, 2%, lactose free) ? Coffee ? Juice (without pulp) ? Oral Nutrition supplement Breakfast: ? Hot cereal (oatmeal or cream of wheat) ? Scrambled eggs ? Blueberry muffin ? Cold cereal (no whole grain cereals) ? [place] (white) Lunch or Dinner: Deli Items: Hot Items: [place] sandwich Roast [place] Tuna salad (sandwich or alone) Macaroni & Cheese Egg salad (sandwich or alone) Mashed potatoes & gravy Chicken salad (sandwich or alone) Carrots Green beans Cold Sides: Soups: Cottage cheese Vegetable soup Yogurt Chicken noodle Hardboiled egg Dessert: ? Gelatin, pudding, side kick (juice slushie) Discharge Orders/Prescriptions Prescriptions: New acetaminophen 500 mg Tablet 1,000 mg PO Q6 PRN (Reason: Pain) Qty: 0 0RF Continued pantoprazole [Protonix] 40 mg tablet,delayed release (DR/EC) 40 mg PO DAILY Qty: 30 0RF Discontinued neomycin 500 mg tablet 500 mg PO .COMPLEX Qty: 6 0RF Rx Instructions: Take two (2) 500 mg tablets PO at 1300, 1500, 2300 metronidazole 500 mg tablet 500 mg PO .COMPLEX Qty: 6 0RF Rx Instructions: 500 mg PO Take 2 (two) tablets at 1300, 1500, 2300 Referrals / Follow Up: Beatriz Augustine MD [Med Staff - Active Staff] - (Please contact our office to follow-up in [address] Augustine) Rachna Swenson Ruf[place], TRANSIT OPERATOR-C [Primary Care Provider] - Disposition Disposition (needs filled in before D/C Order can be placed): [facility] Facility Charges/Coding Visit Charges Inpatient E&M: 25950 SNF Disch (no charge; post-op)
--- NOTE | 2024-07-27 10:08 | DS.PCM_ITS ---
Providers Date of Admission: 07/24/24 Primary Care Physician: Rachna Swenson Rufino, OVEN WORKER-C Diagnosis Discharge Diagnosis (1) S/P right hemicolectomy: Status: Acute Code(s): Z90.49 - Acquired absence of other specified parts of digestive tract Plan: I am following this patient in conjunction with Dr. Augustine. She will independently evaluate this patient. Patient continues to tolerate her transitional diet She is having bowel function and urinating well She is ready for discharge back to the [facility] Pathology pending from surgery Patient to follow-up in [address] Augustine Medications at Discharge Home Medications pantoprazole 40 mg tablet,delayed release (Protonix) 40 mg PO DAILY GI #30 tabs 07/08/24 acetaminophen 500 mg tablet 1,000 mg (2 x 500 mg) PO Q6 PRN Pain #0 tabs 07/27/24 Hospital Course Operations colectomy (Laparoscopic converted to open palliative right hemicolectomy, extensive lysis of adhesions) Summary of Care Provided Minutes Spent on Discharge: 30 Hospital Course: Patient is an 83 y/o F with a history of dementia. Patient is from the [facility] and was found to have a colon cancer during last hospitalization. Patient presents fro an elective palliative colectomy by Dr. Augustine. Dr. Augustine performed a Laparoscopic converted to open palliative right hemicolectomy, extensive lysis of adhesions on 07/24/24. Patient tolerated the procedure well. She had an uneventful hospitalization. Upon discharge, patient is tolerating a transitional diet well. She notes positive flatus and loose stools. She denies any nausea, vomiting, fever. She is urinating well. Her incisions all appearing to be healing very nicely without drainage or infection noted. She will need to follow-up with Dr. Augustine in 2 weeks from surgery. Weight / BMI Weight Weight: 143 lb 11.862 oz Body Mass Index (BMI) 24.6 ABG / Lab / Microbiology Data 07/26/24 07:55 07/26/24 07:55 D/C Instructions Discharge Diet: - (transitional diet for 2 weeks. Instructions included) Lifting Restrictions: 15 pounds for 2 weeks. No strenuous exercise for 4 weeks Call your doctor if your incision/area has: Continuous Slow Oozing, Sudden Increased Bleeding, Increased Pain/ Swelling, Increased Redness, Foul Smelling Discharge and Swelling at the incision site Call your doctor if you observe: Fever of 101 or Higher Suture Line Care: Avoid Pulling/Pushing and Avoid Pinching/Bending Cleanse incision/area with: Soap & Water Additional Dressing/Incision Instructions: May remove steri-strips in 1 week Please Follow Up With: Beatriz Augustine MD When: Please contact our office for a 2 week follow-up at [phone], option #2 Meaningful Use Info Meaningful Use Meaningful Use Diagnoses (Choose all that apply): None applicable Ischemic Stroke Statin Dosing Therapy Reference: STATIN DOSE THERAPY REFERENCE: * Patients > 75 years receive moderate or high dose statin therapy. * Patients 75 years or YOUNGER should receive HIGH intensity statin dose unless contraindicated. You will be required to document reason for non-treatment if statin daily dose does not meet guidelines. HIGH DOSE STATIN THERAPY DAILY Atorvastatin > than or = to 40 mg Rosuvastatin > than or = to 20 mg Amlodipine + Atorvastatin > than or = to 2.5/40 mg Ezetimibe + Simvastatin 10/80 mg Simvastatin 80mg Discharge Plan Admission Admit Date/Time: 07/24/24 11:14 Primary Reason for Your Visit: Colon cancer Attending Provider: Beatriz Augustine Primary Care Provider: Rachna Swenson [facility] Instructions Additional Instructions / Restrictions: Colectomy Diet ? Start light with soups and soft bland foods. Refer to your transitional diet instruction sheet Activity ? You may drive in 5-7 days but not while taking narcotic pain medication. ? I encourage walking. You may go up steps, one at a time. ? Do not swim or use hot tubs for 2 weeks. Lifting ? You may lift up to 15 pounds for 2 weeks. Dressings/Incision ? Do NOT tub bathe for 1 week ? When plastic dressings are removed, you will find steri strips. It is okay to continue showering with them in place, pat them dry. ? You may remove steri-strips after 1 week. We recommend getting them soaking wet for easier removal. Medications ? Anesthesia used during surgery and pain medications may cause constipation. I recommend initiating on the day of surgery a fiber supplement like, Metamucil, Citrucel, FiberCon, Benefiber, or a generic form of these medications. 1 heaping tablespoon in water daily. You may continue to utilize any bowel regimen or oral laxatives that you routinely take. ? As long as you are not intolerant to Tylenol, acetaminophen, ibuprofen, Motrin, Advil, Aleve, or similar medications, I would recommend transitioning to these [id number] medicines as soon as possible instead of continued use of narcotic pain medication. Follow up ? You should call [facility] soon after surgery, at [phone] option 1 to make a follow up appointment for 2 weeks after your surgery. Transitional Diet for 2 weeks after surgery Beverages: ? Soda (cola, diet cola, lemon-[place], diet lemon-[place], delmy ronal, diet delmy ronal) ? Tea (hot or iced) ? Milk (low-fat, 2%, lactose free) ? Coffee ? Juice (without pulp) ? Oral Nutrition supplement Breakfast: ? Hot cereal (oatmeal or cream of wheat) ? Scrambled eggs ? Blueberry muffin ? Cold cereal (no whole grain cereals) ? [place] (white) Lunch or Dinner: Deli Items: Hot Items: [place] sandwich Roast [place] Tuna salad (sandwich or alone) Macaroni & Cheese Egg salad (sandwich or alone) Mashed potatoes & gravy Chicken salad (sandwich or alone) Carrots Green beans Cold Sides: Soups: Cottage cheese Vegetable soup Yogurt Chicken noodle Hardboiled egg Dessert: ? Gelatin, pudding, side kick (juice slushie) Discharge Orders/Prescriptions Prescriptions: New acetaminophen 500 mg Tablet 1,000 mg PO Q6 PRN (Reason: Pain) Qty: 0 0RF Continued pantoprazole [Protonix] 40 mg tablet,delayed release (DR/EC) 40 mg PO DAILY Qty: 30 0RF Discontinued neomycin 500 mg tablet 500 mg PO .COMPLEX Qty: 6 0RF Rx Instructions: Take two (2) 500 mg tablets PO at 1300, 1500, 2300 metronidazole 500 mg tablet 500 mg PO .COMPLEX Qty: 6 0RF Rx Instructions: 500 mg PO Take 2 (two) tablets at 1300, 1500, 2300 Referrals / Follow Up: Beatriz Augustine MD [Med Staff - Active Staff] - (Please contact our office to follow-up in [address] Augustine) Rachna Swenson Rufino, OVEN WORKER-C [Primary Care Provider] - Disposition Disposition (needs filled in before D/C Order can be placed): Residential Facility Charges/Coding Visit Charges Inpatient E&M: 55073 SNF Disch (post-op; no charge)
--- NOTE | 2024-07-27 11:16 | CASEMGMT ---
Social Work- Physician updated and pt is ready for discharge today.? Discharge orders faxed to [facility].? Transportation arranged with pt Gretta agrawal, for 2:00 PM pickup.? SW met with pt and they are agreeable to discharge plan as stated above.? Bedside nurse notified of discharge time. SW called [facility] to advise of fax and d/c. FRANCISCO Morales
--- NOTE | 2024-07-27 11:28 | NURSING ---
Report called to [facility] [phone] to nurse Richard. Pt will be brought back by personal transportation.
[2024-07-27 13:18] VITALS: BP 116/79; PULSE 106; RESP 18; TEMP 36.8; O2SAT 93
== END 2024-07-27 14:09 | disposition skilled nursing facility (03) | DRG 330 ==
PROVIDERS: Anesthesiology; Admitting Provider Surgery; PCP Nurse Practitioner Family; Referring Provider Surgery; Visit Provider Surgery
PROC: 0DTG4ZZ Resection of Left Large Intestine, Percutaneous Endoscopic Approach (ICD-10-PCS; CPT 44204; principal; 2024-07-24 07:10)
DX: C18.4 Malignant neoplasm of transverse colon (principal); C78.7 Secondary malignant neoplasm of liver and intrahepatic bile duct; F03.90 Unspecified dementia, unspecified severity, without behavioral disturbance, psychotic disturbance, mood disturbance, and anxiety; D63.0 Anemia in neoplastic disease; K76.9 Liver disease, unspecified; Z87.891 Personal history of nicotine dependence; Z53.31 Laparoscopic surgical procedure converted to open procedure; Z80.0 Family history of malignant neoplasm of digestive organs
CPT/HCPCS: 36415; 80048; 82962; 83735; 85025; 85027; 88309; 94668; 94762; 97161; 97166; J7120; A4216; C1760; J2405; J3475; J3490

== ENCOUNTER → 2025-03-10 | Outpatient (CLI) | payer MEDICARE, SELFPAY ==
[2025-03-10 17:03] LABS: Absolute Lymphocyte Count 1.45 X10^3/uL (0.83-4.51); Absolute Neutrophil Count 3.2 X10^3/uL (2.0-7.7); Basophil# 0.05 X10^3/uL; Basophil% 0.9 % (0-1); Eosinophil# 0.08 X10^3/uL; Eosinophils% 1.5 % (0-5); Hematocrit 41.2 % (37-47); Hemoglobin 13.6 g/dL (12.0-15.0); Lymphocyte # 1.45 X10^3/ul (0.83-4.51); Lymphocyte % 27.2 % (19-41); Mean Corpuscular Volume 96.9 fL (81-99); Mean Platelet Vol. 10.3 fl (6.2-12.0); Monocyte# 0.53 X10^3/uL; Monocyte% 9.9 % (0-10); NRBC Flagged by Analyzer 0 % (0-5); Neutrophil % 59.9 % (47-70); Platelet Count 231 K/mm3 (150-450); RBC Distribution Width CV 14.2 % (11.6-14.6); RBC Distribution Width SD 50.8 fl (35.1-43.9); Red Blood Count 4.25 M/mm3 (4.2-5.4); White Blood Count 5.3 K/mm3 (4.4-11.0)
[2025-03-10 18:05] LABS: ALB/GLOB Ratio 1.5 RATIO (0.9-2.4); AST(SGOT) 21 U/L (<=31); Alanine Aminotransfer ALT/SGPT 19 U/L (<=34); Albumin, Serum 4.1 g/dL (3.4-4.8); Alkaline Phosphatase 95 U/L (35-104); Anion Gap 12 (5-15); BUN 19 mg/dL (4-19); BUN/Creat Ratio 18.1 RATIO (10-20); Carbon Dioxide 22.7 mmol/L (21.0-32.0); Chloride 106 mmol/L (98-108); Creatinine, Serum 1.04 mg/dL (0.70-1.20); EST Glomerular Filtration Rate 53 (>60); Globulin 2.6 g/dL (2.2-4.2); Glucose 104 mg/dL (70-99); Protein, Total 6.7 g/dL (5.9-8.4); Sodium Level 140 mmol/L (133-145); Total Bilirubin 0.44 mg/dL (0.00-1.30); Vitamin B12 179 pg/mL (180-914); Vitamin D,25 Hydroxy 27.5 ng/mL (30-100)
== END | disposition home or self-care (01) ==
LOC: VSLAB 15:17
PROVIDERS: PCP Nurse Practitioner Family; Visit Provider Nurse Practitioner Family
DX: E55.9 Vitamin D deficiency, unspecified (principal); F03.90 Unspecified dementia, unspecified severity, without behavioral disturbance, psychotic disturbance, mood disturbance, and anxiety
CPT/HCPCS: 36415; 80053; 82306; 82607; 84443; 85025

== ENCOUNTER → 2025-07-19 | Outpatient (CLI) | payer MEDICARE, MEDICAID, SELFPAY ==
[2025-07-19 18:35] LABS: Hematocrit 41.5 % (37-47); Hemoglobin 13.8 g/dL (12.0-15.0); Immature Granulocytes Count 0.040 X10^3/uL (0.0-0.0); Mean Corp Hgb Conc 33.3 g/dL (32-36); Mean Corpuscular Volume 97.9 fL (81-99); Mean Platelet Vol. 11.1 fl (6.2-12.0); NRBC Flagged by Analyzer 0 % (0-5); Platelet Count 236 K/mm3 (150-450); RBC Distribution Width CV 13.3 % (11.6-14.6); RBC Distribution Width SD 48.5 fl (35.1-43.9); Red Blood Count 4.24 M/mm3 (4.2-5.4); White Blood Count 6.4 K/mm3 (4.4-11.0)
[2025-07-19 19:21] LABS: AST(SGOT) 21 U/L (<=31); Alanine Aminotransfer ALT/SGPT 17 U/L (<=34); Albumin, Serum 4.2 g/dL (3.4-4.8); Alkaline Phosphatase 86 U/L (35-104); Anion Gap 13 (5-15); BUN 16 mg/dL (4-19); BUN/Creat Ratio 17.3 RATIO (10-20); Calcium,Total 9.8 mg/dL (7.6-11.0); Carbon Dioxide 22.1 mmol/L (21.0-32.0); Chloride 104 mmol/L (98-108); Globulin 2.7 g/dL (2.2-4.2); Glucose 87 mg/dL (70-99); Potassium 4.1 mmol/L (3.3-5.1); Vitamin B12 787 pg/mL (180-914); Vitamin D,25 Hydroxy 38.5 ng/mL (30-100)
== END | disposition home or self-care (01) ==
PROVIDERS: PCP Nurse Practitioner Family; Referring Provider Family Medicine; Visit Provider Family Medicine
DX: E53.8 Deficiency of other specified B group vitamins (principal); E55.9 Vitamin D deficiency, unspecified; R44.3 Hallucinations, unspecified
CPT/HCPCS: 36415; 80053; 82306; 82607; 84443; 85025

== ENCOUNTER → 2025-08-18 | Outpatient (CLI) | payer MEDICARE, MEDICAID, SELFPAY | END | disposition home or self-care (01) | LOC: RAD 12:30 | PROVIDERS: PCP Nurse Practitioner Family; Referring Provider Nurse Practitioner Family; Visit Provider Nurse Practitioner Family | DX: R07.81 Pleurodynia (principal); W19.XXXA Unspecified fall, initial encounter | CPT/HCPCS: 71111 ==